=== PATIENT | male | born 1975 | race Caucasian/White ===

== ENCOUNTER 2024-10-12 11:58 | Emergency (ER) | payer OTHER, SELFPAY ==
--- OUTSIDE RECORDS SUMMARY | 2024-10-12 11:59 | XMS_ITS | Clinical Summary ---
Author Organization [facility] Address [address] [place] [address] Care Team Providers Care Vessel Captain Name Role Phone Todd Brock M.D. Primary Care Mikki gabriel Source Comments Patient records contain information from all sites at [facility]. For routine questions regarding patient records, call [phone] during business hours, M-F 8:00 AM - 5:00 PM Central Time. Record requests for emergency care only can be directed to [phone] at any time.[facility] Allergies Active Allergy Reactions Criticality Noted Date Comments Hydrocodone-Acetaminophen Nausea And Vomiting 0 08/11/2018 Trazodone GI intolerance 10/02/2019 Medications * This document contains information received from the source organization and may not represent a complete record from that organization. sildenafiL (VIAGRA) 100 mg tablet Take 1 tablet (100 mg total) by mouth as needed for erectile dysfunction. 18 tablet 3 3 Active Additional Information Patient not taking.Reported on 10/06/2023 QUEtiapine 150 mg tabletIndication s:Anxiety Generalized Disorder,Cycloth ymic Disorder Take 150 mg by mouth at bedtime. 90 tablet 3 4 11/21/19 25 Active escitalopram (Lexapro) 10 mg tabletIndication s:Anxiety Generalized Disorder,Depress ion Major Recurrent Severe Without Psychotic Features (HCC) Take 1 tablet (10 mg total) by mouth daily. 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 Aftercare Musculoskeletal Surgery 12/13/2021 Overview (12/13/2021): Added automatically from request for surgery [id number] Pain Hand Right 12/13/2021 Overview (12/13/2021): Added automatically from request for surgery [id number] Arthritis Finger 12/13/2021 Mallet Finger Acquired Right 08/23/2021 Overview (08/23/2021): Added automatically from request for surgery [id number] Major Depressive Disorder, Recurrent, Unspecifie d 03/13/2019 Overview (03/13/2019): Follows with Psychiatry Nicotine Dependence Cigarettes 03/13/2019 Hyperlipidemia Mixed 03/13/2019 Moderate Or Severe Use Disor camron (Dependence) Drug Cannabis Remission 03/13/2019 Moderate Or Severe Use Disor camron (Dependence) Alcohol Remission 03/13/2019 Smoking Tobacco Use Personal History 03/13/2019 Depression Major Recurrent S evere Without Psychotic Features 10/02/2018 Attention Deficit Hyperactive Disorder 4 Anxiety Generalized Disorder 04/14/2014 Persistent Depressive Disorder 04/14/2014 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 05/05/2009 Other Symptoms And Signs Inv olving Cognitive Functions And Awareness 02/05/2009 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 Med Refill 08/19/2024 Clinical Communication Department of Family Medicine, [facility], in [place], [place] [address] [phone] Todd Brock M.B.B.S., M.D. New Med Request 08/13/2024 Orders Only [facility] Todd Brock M.B.B.S., M.D. Screening Examination Diabetes Mellitus; Hyperlipidemia Mixed from Last 3 Months Immunizations Immunization Administration Dates Next Due HZV (ZOSTAVAX) 03/14/2023(Deferred: Patient dec ision) HepA Adult 03/14/2023(Deferred: Patient dec ision) HepB Adult 09/08/2011,08/09/2011 HepB Adult (HEPLISAV-B) 03/14/2023(Deferred: Pat ient decision) Influenza, Unspecified 06/07/2018 Pneumococcal Conjugate(PCV), Unspecified 03/14/2023(Deferred: Patient decision) SARS-COV-2 (COVID-19) - PFIZ ER (Discontinued)(12 years or older) 03/14/2023(Deferred: Patient decision) Td (Adult), adsorbed 01/27/2009 Td Preservative Free (TENIVA C, DECAVAC) 01/27/2009 Tdap 04/27/2015,01/27/2009 influenza vaccine quad (FLUZONE/FLUARIX) (6 months and older)(PF) 06/01/2020,05/29/2019 Family History Medical History Relation Name Comments No Known Problems Father Arthritis Maternal Grandmother mike christianomarge Pancreatic cancer Maternal Grandmother mike christianomarge Hyperlipidemia Mother jodi ruvalcaba Hypertension Mother jodi randa Lung cancer Mother jodi randa etiology wo rk related Diabetes Sister 1 mat Diabetes Sister 3 bahman dowd Anger Son 1 Relation Name Status Comments Brother mat Alive Daughter Alive Father Maternal Grandmother mike alvaradokamilahve Mother jodi randa Alive Sister 1 mat Alive Sister 2 mat Alive Sister 3 bahman dowd Son 1 Alive Son 2 Alive Son 3 Alive Social History Tobacco Use Types Packs/Day Years Used Date Smoking Tobacco: Former Cigarettes 0 1 09/21/2010 - 07/21/2011 Smokeless Tobacco: Former Tobacco Cessation:Counseling Given: Not Answered Alcohol Use Standard Drinks/Week Comments Not Currently 0 (1 standard drink = 0.6 oz pur e alcohol) [facility] Utilities Answer Date Recorded In the past 12 months has e [place], gas, oil, or water company threatened to shut off services in your home? No 10/25/2023 Humiliation, Afraid, Rape, and Kick questionnair e Answer Date Recorded Within the last year, have y ou been afraid of your partner or ex-partner? No 10/18/2022 Within the last year, have y ou been humiliated or emotionally abused in other ways by your partner or ex-partner? No Within the last year, have y ou been kicked, hit, slapped, or otherwise physically hurt by your partner or ex-partner? No 10/18/2022 Within the last year, have y ou been raped or forced to have any kind of sexual activity by your partner or ex-partner? No 10/18/2022 Social Connection and Isolation Panel [NHANES] A nswer Date Recorded In a typical week, how many times do you talk on the phone with family, friends, or neighbors? Three times a week 10/19/19 23 How often do you get togethe r with friends or relatives? Once a week 10/18/2022 How often do you attend [facility] or lutheran services? 1 to 4 times per year 10/18/2022 Do you belong to any clubs o r organizations such as adventist groups, unions, fraternal or athletic groups, or school groups? No 10/18/2022 How often do you attend meet ings of the clubs or organizations you belong to? Never 10/18/2022 Are you , , di vorced, , never , or living with a partner? Never 10/18/2022 AUDIT-C Answer Date Recorded Q1: How often do you have a drink containing alc ohol? Never 10/18/2022 Average Number of Drinks Not on file 023 Frequency of Binge Drinking Not on file 10/05 Overall Financial Resource Strain (CARDIA) Answe r Date Recorded How hard is it for you to pa y for the very basics like food, housing, medical care, and heating? Hard 10/18/2022 PHQ-2 Answer Date Recorded PHQ-2 Score 4 11/21/2023 [facility] - Occupational Stress Questionnaire Answer Date Recorded Do you feel stress - tense, restless, nervous, or anxious, or unable to sleep at night because your mind is troubled all the time - these days? Very much 10/18/2022 Exercise Vital Sign Answer Date Recorde d On average, how many days pe r week do you engage in moderate to strenuous exercise (like a brisk walk)? 0 days 10/25/2023 On average, how many minutes do you engage in exercise at this level? 0 min 10/25/2023 Hunger Vital Sign Answer Date Recorded Within the past 12 months, y ou worried that your food would run out before you got the money to buy more. Sometimes true Within the past 12 months, t he food you bought just didn't last and you didn't have money to get more. Sometimes true PRAPARE - Transportation Answer Date Re corded In the past 12 months, has l ack of transportation kept you from medical appointments or from getting medications? Yes 10/06 In the past 12 months, has l ack of transportation kept you from meetings, work, or from getting things needed for daily living? Yes 10/25/2023 Depression Answer Date Recor ded PHQ-9 Total Score (max 27) 15 11/20 Nutrition Answer Date Recorded On average, how many serving s of fruits and vegetables do you eat per day (serving size is equal to 1 cup or approximately the size of a tennis ball)? 0-2 10/25/2023 Dental Answer Date Recorded Dental: Regular Dentist No 10/19/19 Employment Answer Date Recorded Employment status Employed and actively working without restrictions 10/25/2023 Housing Stability Answer Date Recorded What is your living situation today? I h ave a place to live today, but I am worried about losing it in the future 10/25/2023 Education Answer Date Recorded What is the highest level of school you have completed or the highest degree you have received? GED or equivalent Sex and Gender Information Value Date Recorded Sex Assigned at Male 10/01/2021 12:10 PM SMALL ANIMAL CARETAKER Legal Sex Male 8:53 PM SMALL ANIMAL CARETAKER Gender Identity Male 10/01/2021 12:10 PM SMALL ANIMAL CARETAKER Sexual Orientation Straight 10/01/2021 12 :10 PM SMALL ANIMAL CARETAKER Last Filed Vital Signs Vital Sign Reading Time Taken Comments Blood Pressure 113/64 11/21/2023 1:50 PM CDT Pulse 64 11/21/2023 1:50 PM CDT Temperature 36.4 C (97.5 F) 11/21/2023 1:50 PM CDT Respiratory Rate 16 11/01/2023 3:58 PM CDT Oxygen Saturation 97% 01/07/2022 10:28 AM CDT Inhaled Oxygen Concentration - - Weight 60 kg (132 lb 4.4 oz) 11/21/2023 1:50 PM CDT Height 174 cm (5' 8.5) 11/21/2023 1:50 PM CDT Body Mass Index 19.82 11/21/2023 1:50 PM CDT Plan of Treatment Health Maintenance Due Date Last Done Comments CT Colonography 1973 Cologuard 1973 Colonoscopy 1973 Colorectal Cancer Screening 1973 FIT 1973 Hepatitis B Screening 1973 Pneumococcal vaccine (50+ years) (1 of 2 - PCV) 01/05/1992 Hepatitis B Vaccines (3 of 3 - 19+ 3-dose series) 02/07/2012 09/08/2011, 08/09/2011 Lipid (Cholesterol) Screening 08/18/2022 08/18/2021, 09/08/2020, 05/16/2020, Additional history exists Zoster Vaccines (1 of 2) 2023 COVID-19 Vaccine (1 - season) 2024 Influenza Vaccine (#1) 2024 , 05/29/2019, 06/07/2018 Depression Screening (Annual PHQ-2) 08/07/2024 Fasting Glucose for Diabetes Screening 08/18/2024 08/18/2021, 08/18/2021, 05/16/2020, Additional history exists DTaP,Tdap,and Td Vaccines (4 - Td or Tdap) 04/27/2025 04/27/2015, 01/27/2009, 01/27/2009, Additional history exists Hepatitis C Screening Completed 12/19/2022 IPV Vaccines Aged Out No longer eligi ble based on patient's age to complete this topic Medical Devices Implanted Type Area Apartment Community Manager Device Identifier Shelf Expiration Date Model / Serial / Lot Kwire Fix Stn Ss Bth 0.045x6 - [id number] Implanted:Qty: 3 on 08/31/2021 by Dai Springer M.D. at [facility] Hardware e.g. pins/screws /rods Right: Ring Finger Gary [id number] / / Compression Ft Screws, Cannulated, Titanium Implanted:Qty: 1 on 01/07/2022 by Dai Springer M.D. at [facility] Hardware e.g. pins/screws /rods Right: Hand Arthrex [id number] / / Explanted Type Area Apartment Community Manager Device Identifier Shelf Expiration Date Model / Serial / Lot Kwire Fix Stn Ss Bth 0.045x6 - [id number] Explanted:Qty : 1 on 08/31/2021 by Dai Springer M.D. at [facility] Hardware e.g. pins/screws /rods Right: Ring Finger [place] [id number] / / Procedures Procedure Name Priority Date/Time Associated Diagnosis Comments HCV AB SCRN W/REFLEX TO HCV PCR, S Routine 12/19/2022 8:05 AM CDT Screening For Venereal Disease GLUCOSE, FASTING, S/P Routine 08/18/2021 11:54 AM SMALL ANIMAL CARETAKER Moderate Or Severe Use Disorder (Dependence) Alcohol Remission (HCC) Depression Major Recurrent (HCC) General Medical Examination Adult LIPID PANEL, S Routine 08/18/2021 11:54 AM SMALL ANIMAL CARETAKER Moderate Or Severe Use Disorder (Dependence) Alcohol Remission (HCC) Depression Major Recurrent (HCC) General Medical Examination Adult from Last 3 Months or Most Recently Relevant to Health Maintenance Results * HCV Ab Scrn w/Reflex to HCV PCR, Serum (12/19/2022 8:05 AM CDT) HCV Ab Screen, S Negative Negative 12/20/19 3:32 PM CDT [facility] Comment: Biotin has been identified by the clay miner as a potential interfering substance. Higher concentrations of biotin may be found in multivitamins, hair/nail supplements, and workout supplements. If the result does not match clinical observations, repeat testing after patient refrains from the use of supplements for at least 12 hours. Blood (Blood, Venous) 12/19/2022 8:05 AM CDT 12/19/2022 2:14 PM CDT Narrative [facility] - 12/19/2022 3:32 PM CDT Specimen Information: Specimen ID: [id number] Specimen Type: Blood Specimen Collection Start Date: 12/19/2022 8:05 AM Specimen Received Date: 12/19/2022 2:14 PM Specimen ID: [id number] Specimen Type: Blood Specimen Collection Start Date: 12/19/2022 8:05 AM Todd Reyes M.D. LAB MICROBIOLOG Y - BLOOD ORDERABLES Final Result [facility] [address] [place] [address], [place] [address] * (ABNORMAL) Lipid Panel (08/18/2021 11:54 AM SMALL ANIMAL CARETAKER) Cholesterol, Total 301(H) mg/dL 2021 4:04 PM SMALL ANIMAL CARETAKER OWAT Comment: ----REFERENCE VALUE---- Desirable: < 200 Borderline high: 200 - 239 High: > or = 240 Triglycerides 177(H) mg/dL 08/18/2021 4:04 PM SMALL ANIMAL CARETAKER OWAT Comment: ----REFERENCE VALUE---- Normal: <150 Borderline high: 150-199 High: 200-499 Very high: > or =500 Cholesterol, HDL 55 >=40 mg/dL 08/18/2021 4:04 PM SMALL ANIMAL CARETAKER OWAT Calculated LDL 211(H) mg/dL 08/18/2021 4:04 PM SMALL ANIMAL CARETAKER OWAT Comment: The markedly elevated LDL level is suggestive of a genetic condition such as familial hypercholesterolemia (FH) or familial defective apolipoprotein B-100 (FDB). Molecular genetic testing for FH and FDB is available through [facility] Laboratories: Hypercholesterolemia Gene Panel (test FHRGP). Acquired (non-genetic) causes of markedly increased LDL cholesterol include cholestatic liver disease due to the presence of LpX. If a genetic form of hypercholesterolemia is suspected, family studies including biochemical testing for lipids (total cholesterol, triglycerides, LDL cholesterol and HDL cholesterol) are recommended. Please contact the laboratory at or the on-line test catalog at [employer] for information about how to order these tests or to speak with a genetic counselor. Further interpretation would require clinical information. ----REFERENCE VALUE---- Desirable: <100 mg/dL Above Desirable: 100-129 mg/dL Borderline High: 130-159 mg/dL High: 160-189 mg/dL Very High: >=190 mg/dL Cholesterol, Non-HDL, Calculated 246(H) mg/dL 08/18/2021 4:04 PM SMALL ANIMAL CARETAKER OWAT Comment: ----REFERENCE VALUE---- Desirable: <130 Above Desirable: 130-159 Borderline high: 160-189 High: 190-219 Very high: > or =220 Blood (Blood, Venous) 08/18/2021 11:54 AM SMALL ANIMAL CARETAKER 08/18/2021 3:46 PM SMALL ANIMAL CARETAKER us Mercy Sauceda M.D. LAB BLOOD ADD-ON Final Re sult [facility] [address] [place] [address], [place] OWAT [facility] [place] [address] [place] [address] * Glucose, Fasting (08/18/2021 11:54 AM SMALL ANIMAL CARETAKER) Glucose, P 96 70 - 100 mg/dL 08/18/2021 1:46 PM SMALL ANIMAL CARETAKER OWAT Last Intake 18 hr 08/18/2021 1:07 PM SMALL ANIMAL CARETAKER OWAT Blood (Blood, Venous) 08/18/2021 11:54 AM SMALL ANIMAL CARETAKER 08/18/2021 1:07 PM SMALL ANIMAL CARETAKER Mercy Sauceda M.D. LAB BLOOD NON ADD-ON Ema l Result [facility] [address] [place] [address], [place] OW[place] [facility] [place] [address] [place] [address] from Last 3 Months or Most Recently Relevant to [place] [phone] [facility] Care Teams Vessel Captain Relationship Specialty Start Date End Date Todd Brock M.B.B.SHemant, MJak. [address] [place] [address] [place] [phone] PCP - General Family Medicine 10/18/22
--- OUTSIDE RECORDS SUMMARY | 2024-10-12 11:59 | XMS_ITS | Encounter Summary ---
Author Organization [facility] Address [address] [place] [address] Care Team Providers Care Seconds Handler Name Role Phone Todd Brcok M.D. Primary Care Mikki gabriel Reason for Visit * Reason Onset Date Comments New Med Request 08/19/2024 Encounter Details Date Type Department Care Team (Latest Contact Info) Description 08/19/2024 Clinical Communication Department of Family Medicine, [facility], in [place], [place] [address] [place] [address] Todd Brock M.B.B.S., M.D. [address] [place] [address] New Med Request Social History Tobacco Use Types Packs/Day Years Used Date Smoking Tobacco: Former Cigarettes 0 1 09/21/2010 - 07/21/2011 Smokeless Tobacco: Former Alcohol Use Standard Drinks/Week Comments Not Currently 0 (1 standard drink = 0.6 oz pur e alcohol) [facility] Utilities Answer Date Recorded In the past 12 months has e electric, gas, oil, or water [employer] threatened to shut off services in your [...] or neighbors? Three times a week 10/19/19 How often do you get togethe r with friends or relatives? Once a week 10/18/2022 How often do you attend chur or episcopal services? 1 to 4 times per year 10/18/2022 Do you belong to any clubs o r organizations such as orthodoxy groups, unions, fraternal or athletic groups, or [...] Answer Date Recorded PHQ-2 Score 4 11/21/2023 [facility] - Occupational Stress Questionnaire Answer Date Recorded [...] Sex Assigned at Male 10/01/2021 12:10 PM ELECTRONICS WARFARE TECHNICIAN Legal Sex Male 8:53 PM ELECTRONICS WARFARE TECHNICIAN Gender Identity Male 10/01/2021 12:10 PM ELECTRONICS WARFARE TECHNICIAN Sexual Orientation Straight 10/01/2021 12 :10 PM ELECTRONICS WARFARE TECHNICIAN documented as of this encounter Miscellaneous Notes * Telephone Encounter - Oly Arriaga R.N. - 08/19/2024 1:28 PM CST Inverform Machine Operator clarified with patient that when [facility] closed his prescriptions were sent to -[facility] pharmacy and they have refills available for the Quetiapine prescription. Patient asked that hispharmacy be switched to [facility] in [place] and that provider send in new RX for Lexapro. Orders pended & sent to provider in another message. TRONICS WARFARE TECHNICIAN documented in this encounter Plan of Treatment Not on file documented as of this encounter Visit Diagnoses Not on filedocumented in this encounter Additional Health Concerns Assessment Noted Time PHQ-9 Depression Total Score: 15 024 2:09 PM CDT documented as of this encounter Care Teams Seconds Handler Relationship Specialty Start Date End Date Todd Brock M.B.B.S., MJak. [address] [place] [phone] PCP - General Family Medicine 10/18/22 documented as of this encounter
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
[2024-10-12 12:08] VITALS: BP 152/84; PULSE 60; RESP 18; TEMP 36.9; O2SAT 97; BMI 21.0
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
--- OUTSIDE RECORDS SUMMARY | 2024-10-12 14:13 | XMS_ITS | Clinical Summary ---
Author Organization [facility] Address [address] [place] [id number] Care Team Providers Care Manager Front Name Role Phone Todd Brock M.D. Primary Care Mikki gabriel Source Comments Patient records contain information from all sites at [facility]. For routine questions regarding patient records, call [phone] during business hours, M-F 8:00 AM - 5:00 PM Central Time. Record requests for emergency care only can be directed to [phone] at any time.[facility] Allergies Active Allergy Reactions Criticality Noted Date [...] (12/13/2021): Added automatically from request for surgery [id number] Pain Hand Right 12/13/2021 Overview (12/13/2021): Added automatically from request for surgery [id number] Arthritis Finger 12/13/2021 Mallet Finger Acquired Right 08/23/2021 Overview (08/23/2021): Added automatically from request for surgery [id number] Major Depressive Disorder, Recurrent, Unspecifie d 03/13/2019 [...] Description 08/19/2024 Refill Department of Family Medicine, [facility], in [place], [place] [address] [place] [address] Todd Brock M.B.B.S., M.D. Med Refill 08/19/2024 Clinical Communication Department of Family Medicine, [facility], in [place], [place] [address] [phone] Todd Brock M.B.B.S., M.D. New Med Request [...] drink = 0.6 oz pur e alcohol) [facility] Utilities Answer Date Recorded In the past 12 months has e [employer], gas, oil, or water company threatened to [...] week 10/18/2022 How often do you attend [facility] or zoroastrianism services? 1 to 4 times per year 10/18/2022 Do you belong to any clubs o r organizations such as pentecostalism groups, unions, fraternal or athletic groups, or [...] Answer Date Recorded PHQ-2 Score 4 11/21/2023 [facility] - Occupational Stress Questionnaire Answer Date [...] Sex Assigned at Male 10/01/2021 12:10 PM [employer]ISH [employer] A [employer] LANG[employer]AGE IN[employer] Legal Sex Male 8:53 PM [employer] LANG[employer]AGE IN[employer] Gender Identity Male 10/01/2021 12:10 PM [employer] IN[employer] Sexual Orientation Straight 10/01/2021 12 :10 PM ENGL[employer] A [employer] LANGUAGE IN[employer] Last Filed Vital Signs Vital Sign Reading [...] this topic Medical Devices Implanted Type Area Automotive Service Management Teacher Device Identifier Shelf Expiration Date Model / Serial / Lot Kwire Fix Stn Ss Bth 0.045x6 - [id number] Implanted:Qty: 3 on 08/31/2021 by Dai Springer M.D. at [facility] Hardware e.g. pins/screws /rods Right: Ring Finger Gary [id number] / / Compression Ft Screws, Cannulated, Titanium Implanted:Qty: 1 on 01/07/2022 by Dai Springer M.D. at [facility] Hardware e.g. pins/screws /rods Right: Hand Arthrex [id number] / / Explanted Type Area Automotive Service Management Teacher Device Identifier Shelf Expiration Date Model / Serial / Lot Kwire Fix Stn Ss Bth 0.045x6 - [id number] Explanted:Qty : 1 on 08/31/2021 by Dai Springer M.D. at [facility] Hardware e.g. pins/screws /rods Right: Ring Finger Bosler [id number] / / Procedures Procedure Name Priority Date/Time Associated Diagnosis Comments HCV AB SCRN W/REFLEX TO HCV PCR, S Routine 12/19/2022 8:05 AM CDT Screening For Venereal Disease GLUCOSE, FASTING, S/P Routine 08/18/2021 11:54 AM ENGLISH [employer] A SECOND LANGUAGE INSTRUCTOR Moderate Or Severe Use Disorder (Dependence) Alcohol Remission (HCC) Depression Major Recurrent (HCC) General Medical Examination Adult LIPID PANEL, S Routine 08/18/2021 11:54 AM ENGLISH [employer] A [employer] LANGUAGE INSTRUCTOR Moderate Or Severe Use Disorder (Dependence) Alcohol Remission (HCC) Depression Major Recurrent (HCC) General Medical Examination Adult from Last 3 Months or Most Recently Relevant to Health Maintenance Results * HCV Ab Scrn w/Reflex to HCV PCR, Serum (12/19/2022 8:05 AM CDT) HCV Ab Screen, S Negative Negative 12/20/19 3:32 PM CDT [facility] Comment: Biotin has been identified by the frame repairer as a potential interfering substance. Higher concentrations of biotin may be found in multivitamins, hair/nail supplements, and workout supplements. If the result does not match clinical observations, repeat testing after patient refrains from the use of supplements for at least 12 hours. Blood (Blood, Venous) 12/19/2022 8:05 AM CDT 12/19/2022 2:14 PM CDT Narrative [facility] - 12/19/2022 3:32 PM CDT Specimen Information: Specimen ID: [id number] Specimen Type: Blood Specimen Collection Start Date: 12/19/2022 8:05 AM Specimen Received Date: 12/19/2022 2:14 PM Specimen ID: [id number] Specimen Type: Blood Specimen Collection Start Date: 12/19/2022 8:05 AM Todd Reyes M.D. LAB MICROBIOLOG Y - BLOOD ORDERABLES Final Result [facility] [address] [place] [address], [facility] [place] [address] * (ABNORMAL) Lipid Panel (08/18/2021 11:54 AM ENGLISH AS A SECOND LANGUAGE INSTRUCTOR) Cholesterol, Total 301(H) mg/dL 2021 4:04 PM ENGLISH [employer] A [employer]OND LANGUAGE INSTRUCTOR [facility] Comment: ----REFERENCE VALUE---- Desirable: < 200 Borderline high: 200 - 239 High: > or = 240 Triglycerides 177(H) mg/dL 08/18/2021 4:04 PM ENGLISH [employer] A [employer] LANGUAGE INSTRUCTOR [facility] Comment: ----REFERENCE VALUE---- Normal: <150 Borderline high: 150-199 High: 200-499 Very high: > or =500 Cholesterol, HDL 55 >=40 mg/dL 08/18/2021 4:04 PM ENGLISH AS A SECOND LANGUAGE INSTRUCTOR [employer] Calculated LDL 211(H) mg/dL 08/18/2021 4:04 PM ENGLISH [employer] A [employer]OND LANGUAGE IN[employer]CTOR [employer] Comment: The markedly elevated LDL level is suggestive of a genetic condition such as familial hypercholesterolemia (FH) or familial defective apolipoprotein B-100 (FDB). Molecular genetic testing for FH and FDB is available through [facility]: Hypercholesterolemia Gene Panel (test FHRGP). Acquired (non-genetic) causes of markedly increased LDL cholesterol include cholestatic liver disease due to the presence of LpX. If a genetic form of hypercholesterolemia is suspected, family studies including biochemical testing for lipids (total cholesterol, triglycerides, LDL cholesterol and HDL cholesterol) are recommended. Please contact the laboratory at or the on-line test catalog at [facility] for information about how to order these tests or to speak with a genetic counselor. Further interpretation would require clinical information. ----REFERENCE VALUE---- Desirable: <100 mg/dL Above Desirable: 100-129 mg/dL Borderline High: 130-159 mg/dL High: 160-189 mg/dL Very High: >=190 mg/dL Cholesterol, Non-HDL, Calculated 246(H) mg/dL 08/18/2021 4:04 PM ENGLISH [employer] A SEC[employer] LANGUAGE IN[employer] Comment: ----REFERENCE VALUE---- Desirable: <130 Above Desirable: 130-159 Borderline high: 160-189 High: 190-219 Very high: > or =220 Blood (Blood, Venous) 08/18/2021 11:54 AM ENGLISH AS A SECOND LANGUAGE INSTRUCTOR 08/18/2021 3:46 PM ENGLISH AS A SECOND LANGUAGE INSTRUCTOR us Mercy Sauceda M.D. LAB BLOOD ADD-ON Final Re sult [facility] [address] [place] [address], [place] [employer] [facility] [place] [address] [place] [address] * Glucose, Fasting (08/18/2021 11:54 AM ENGLISH AS A SECOND LANGUAGE INSTRUCTOR) Glucose, P 96 70 - 100 mg/dL 08/18/2021 1:46 PM ENGLISH [employer] A SECOND LANGUAGE IN[employer]CTOR [employer] Last Intake 18 hr 08/18/2021 1:07 PM ENGLISH [employer] A [employer] LANGUAGE IN[employer]CTOR [employer] Blood (Blood, Venous) 08/18/2021 11:54 AM ENGLISH AS A SECOND LANGUAGE INSTRUCTOR 08/18/2021 1:07 PM ENGLISH AS A SECOND LANGUAGE INSTRUCTOR Mercy Sauceda M.D. LAB BLOOD NON ADD-ON Ema l Result [facility] [address] [place] [address], [place] OW[employer] [facility] in [place] [address] [place] [address] from Last 3 Months or Most Recently Relevant to [place] [id number] [facility] Care Teams Manager Front Relationship Specialty Start Date End Date Todd Brock M.B.B.SHemant, MJak. [address] [place] [address] [place] [phone] PCP - General Family Medicine 10/18/22
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
--- OUTSIDE RECORDS SUMMARY | 2024-10-12 14:13 | XMS_ITS | Encounter Summary ---
Author Organization [facility] Address [address] [place] [address] Care Team Providers Care Wilderness Guide Name Role Phone Todd Brock M.D. Primary Care Mikki gabriel Reason for Visit * Reason Onset Date Comments New Med Request 08/19/2024 Encounter Details Date Type Department Care Team (Latest Contact Info) Description 08/19/2024 Clinical Communication Department of Family Medicine, [facility], in [place], [place] [address] [place] [address] Todd Brock M.B.B.S., M.D. [address] [place] [address] New Med Request Social History Tobacco Use Types Packs/Day Years Used Date Smoking Tobacco: Former Cigarettes 0 1 09/21/2010 - 07/21/2011 Smokeless Tobacco: Former Alcohol Use Standard Drinks/Week Comments Not Currently 0 (1 standard drink = 0.6 oz pur e alcohol) [facility] Utilities Answer Date Recorded In the past 12 months has e electric, gas, oil, or water [employer] threatened to shut off services in your [...] How often do you attend chur or scientologist services? 1 to 4 times per year [...] Answer Date Recorded PHQ-2 Score 4 11/21/2023 [facility] of Occupat ional Health - Occupational Stress [...] Sex Assigned at Male 10/01/2021 12:10 PM INTRANET SPECIALIST Legal Sex Male 8:53 PM INTRANET SPECIALIST Gender Identity Male 10/01/2021 12:10 PM INTRANET SPECIALIST Sexual Orientation Straight 10/01/2021 12 :10 PM INTRANET SPECIALIST documented as of this encounter Miscellaneous Notes * Telephone Encounter - Oly Arriaga R.N. - 08/19/2024 1:28 PM CST Lithographic Plate Maker Apprentice clarified with patient that when [facility] closed his prescriptions were sent to -[facility] pharmacy and they have refills available for the Quetiapine prescription. Patient asked that hispharmacy be switched to [facility] in [place] and that provider send in new RX for Lexapro. Orders pended & sent to provider in another message. ANET SPECIALIST documented in this encounter Plan of Treatment Not on file documented as of this encounter Visit Diagnoses Not on filedocumented in this encounter Additional Health Concerns Assessment Noted Time PHQ-9 Depression Total Score: 15 024 2:09 PM CDT documented as of this encounter Care Teams Wilderness Guide Relationship Specialty Start Date End Date Todd Brock M.B.B.S., MJak. [address] [place] [phone] PCP - General Family Medicine 10/18/22 documented as of this encounter
[2024-10-12] MEDS: 0.9 % SODIUM CHLORIDE 1000 ml 1,000 ML IV (14:21)
[2024-10-12 14:56] VITALS: BP 139/99; PULSE 62; RESP 16; O2SAT 98
[2024-10-12 15:37] LABS: Basophils Absolute Auto 0.02 K/uL (0.00-0.30); Basophils Percent Auto 0.3 % (0.0-3.0); Eosinophils Absolute Auto 0.04 K/uL (0.00-0.50); Eosinophils Percent Auto 0.6 % (0.0-7.0); Hematocrit 43.1 % (37.0-53.0); Hemoglobin* 14.6 gm/dL (13.5-17.5); Immature Granulocytes Abs Auto 0.01 K/uL (0.00-0.30); Immature Granulocytes Pct Auto 0.2 %; Lymphocytes Absolute Auto 2.13 K/uL (0.90-2.90); Lymphocytes Percent Auto 32.1 % (20-44); Mean Corpuscular HGB Conc 34 gm/dL (32-36); Mean Corpuscular Hemoglobin 30 pg (26-34); Mean Corpuscular Volume 88 fL (80-100); Monocytes Percent Auto 6.3 % (0.0-11.0); Neutrophils Absolute Auto 4.02 K/uL (1.7-7.0); Neutrophils Percent Auto 60.5 % (42.0-72.0); Platelet Count* 320 K/uL (140-440); RDW Coefficient of Variation % 12.7 % (11.5-15.5); Red Blood Count 4.92 m/uL (4.30-5.90); White Blood Count* 6.64 K/uL (4.50-11.00)
[2024-10-12 15:38] LABS: Slide Review Reflex No
[2024-10-12 15:50] LABS: Chloride* 99 mmol/L (96-114)
[2024-10-12 15:51] LABS: Potassium* 4.1 mmol/L (3.6-5.1); Sodium* 136 mmol/L (135-149)
[2024-10-12 15:54] LABS: Anion Gap 11 mEq/L (7-15); Blood Urea Nitrogen* 16 mg/dL (7-30); Carbon Dioxide* 26 mmol/L (20-32); Creatinine* 0.7 mg/dL (0.5-1.5); Est. Creatinine Clearance* 112.14; Estimated Glomerular Filt Rate 112 ml/min; Glucose* 93 mg/dL (60-115)
[2024-10-12] MEDS: KETOROLAC 30 MG/ML inj IVP (15:56)
[2024-10-12 16:22] VITALS: BP 142/82; PULSE 57; RESP 14; O2SAT 99
== END 2024-10-12 16:48 | disposition home or self-care (01) ==
PROVIDERS: Emergency Provider Family Medicine; PCP Family Medicine
DX: R53.81 Other malaise (principal); S21.132A Puncture wound without foreign body of left front wall of thorax without penetration into thoracic cavity, initial encounter; W45.8XXA Other foreign body or object entering through skin, initial encounter
CPT/HCPCS: 36415; 71046; 80048; 85025; 96361; 96374; 99284; J1885; J7030

== ENCOUNTER 2025-02-10 09:22 | Emergency (ER) | payer OTHER, SELFPAY ==
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
--- OUTSIDE RECORDS SUMMARY | 2025-02-10 09:24 | XMS_ITS | Clinical Summary ---
Author Organization [facility] Address [address] [place] [address] Care Team Providers Care Automobile Travel [employer] Counselor Name Role Phone Todd Brock M.D. Primary Care Mikki gabriel Source Comments Patient records contain information from all sites at [facility]. For routine questions regarding patient records, call [phone] during business hours, M-F 8:00 AM - 5:00 PM Central Time. Record requests for emergency care only can be directed to [phone] at any time.[facility] Allergies Active Allergy Reactions Criticality Noted [...] Active Additional Information Patient not taking.Reported on 01/06/2025 QUEtiapine 150 mg tabletIndication s:Anxiety Generalized Disorder,Cycloth ymic Disorder Take 150 mg by mouth at bedtime. 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 [...] tablet (10 mg total) by mouth daily. Aftercare Musculoskeletal Surgery 12/13/2021 Overview (12/13/2021): Added automatically from request for surgery [id number] Pain Hand Right 12/13/2021 Overview (12/13/2021): Added automatically from request for surgery [id number] Arthritis Finger 12/13/2021 Mallet Finger Acquired Right 08/23/2021 Overview (08/23/2021): Added automatically from request for surgery [id number] Major Depressive Disorder, Recurrent, Unspecifie d 03/13/2019 Overview (03/13/2019): Follows with Psychiatry Nicotine Dependence Cigarettes 03/13/2019 Hyperlipidemia Mixed 03/13/2019 Moderate Or Severe Use Disor camron (Dependence) Drug Cannabis Remission 03/13/2019 Assessment & Plan (01/06/2025 11:00 AM CDT): He continues to use marijuana in consistently. [...] tablet (10 mg total) by mouth daily. Moderate Or Severe Use Disor camron (Dependence) Alcohol Remission 03/13/2019 Smoking Tobacco Use Personal History 03/13/2019 Depression Major Recurrent S evere Without Psychotic Features 10/02/2018 Assessment & Plan (01/06/2025 11:00 AM CDT): He continues to use marijuana in consistently. [...] tablet (10 mg total) by mouth daily. Attention Deficit Hyperactive Disorder 4 Anxiety Generalized Disorder 04/14/2014 Assessment & Plan (01/06/2025 11:00 AM CDT): He continues to use marijuana in consistently. [...] tablet (10 mg total) by mouth daily. Persistent Depressive Disorder 04/14/2014 Injury Intracranial With [...] Encounters Date Type Department Care Team Description 01/06/2025 10:00 AM CDT Office Visit Department of Family Medicine, [facility], [place] [address] [place] [address] Todd Brock M.B.B.S., M.D. Personal History Of Other Healed Physical Injury And Trauma (Primary Dx); Moderate Or Severe Use Disorder (Dependence) Drug Cannabis Remission (HCC); Depression Major Recurrent Severe Without Psychotic Features (HCC); Anxiety Generalized Disorder; Cyclothymic Disorder 01/02/2025 Refill Department of Family Medicine, [facility], [place] [address] [place] [address] Todd Brock M.B.B.S., M.D. Med Refill from Last 3 Months Immunizations Immunization Administration [...] Preservative Free (TENIVA C, DECAVAC) 01/27/2009 Tdap 10/06/2024,04/27/2015,01/27/2009 influenza vaccine quad (FLUZONE/FLUARIX) (6 months and older)(PF) 06/01/2020,05/29/2019 Family History Medical History Relation Name Comments No Known Problems Father Arthritis Maternal Grandmother mike alvaradomarge Pancreatic cancer Maternal Grandmother mike patton Hyperlipidemia Mother jodi ruvalcaba Hypertension Mother jodi ruvalcaba Lung cancer Mother jodi ruvalcaba etiology wo rk related Diabetes Sister 1 mat Diabetes Sister 4 bahman dowd Anger Son 1 Relation Name Status Comments Brother mat Alive Daughter Alive Father Maternal Grandmother mike patton Mother jodi ruvalcaba Alive Sister 1 mat Alive Sister 2 mat Alive Sister 3 Bahman Dowd Sister 4 bahmanalexia dowd Son 1 Alive Son 2 Alive Son 3 Alive Social History Tobacco Use Types Packs/Day Years Used Date Smoking Tobacco: Former Cigarettes 0 1 09/21/2010 - 07/21/2011 Smokeless Tobacco: Former Tobacco Cessation:Counseling Given: Not Answered Alcohol Use Standard Drinks/Week Comments Not Currently 0 (1 standard drink = 0.6 oz pur e alcohol) [facility] Utilities Answer Date Recorded In the past 12 months has th e [employer], gas, oil, or water [employer] threatened to shut off services in your [...] your living situation today? I have a [facility] place to live 11/12/2024 Education Answer Date Recorded What is the highest level of school you have completed or the highest degree you have received? GED or equivalent Sex and Gender Information Value Date Recorded Sex Assigned at Male 10/01/2021 12:10 PM SOLAR EN[employer]GY SYSTEMS DESIGNER Legal Sex Male 8:53 PM [employer] DESIGNER Gender Identity Male 10/01/2021 12:10 PM [employer] DESIGNER Sexual Orientation Straight 10/01/2021 12 :10 PM SOLAR ENERGY SYSTEMS DESIGNER Last Filed Vital Signs Vital Sign Reading Time Taken Comments Blood Pressure 120/78 01/06/2025 10:02 AM CDT average Pulse 61 01/06/2025 10:02 AM CDT Temperature 35.8 C (96.4 F) 01/06/2025 10:02 AM CDT Respiratory Rate 16 01/06/2025 10:0 2 AM CDT Oxygen Saturation 97% 01/07/2022 10: 28 AM CDT Inhaled Oxygen Concentration - - Weight 65 kg (143 lb 4.8 oz) 01/06/2025 10:02 AM CDT Height 174.4 cm (5' 8.66) 01/06/2025 1 0:02 AM CDT with shoes on Body Mass Index 21.37 01/06/2025 10:02 AM CDT Plan of Treatment Health Maintenance Due Date Last Done Comments CT Colonography 1973 Cologuard 1973 Colonoscopy 1973 Colorectal Cancer Screening 1973 FIT 1973 Pneumococcal vaccine (50+ years) (1 of 2 - PCV) 01/05/1992 Hepatitis B Vaccines (3 of 3 - 19+ 3-dose series) 02/07/2012 09/08/2011, 08/09/2011 Lipid (Cholesterol) Screening 08/18/2022 08/18/2021, 09/08/2020, 05/16/2020, Additional history exists Zoster Vaccines (1 of 2) 2023 COVID-19 Vaccine (1 - season) 2024 Influenza Vaccine (#1) 2025 , 05/29/2019, 06/07/2018 Fasting Glucose for Diabetes Screening 10/07/2027 10/06/2024, 08/18/2021, 08/18/2021, Additional history exists DTaP,Tdap,and Td Vaccines (5 - Td or Tdap) 10/06/2034 10/06/2024, 04/27/2015, 01/27/2009, Additional history exists Hepatitis C Screening Completed 12/19/2022 Depression Screening (Annual PHQ-2) Completed 01/06/2025, 12/31/2024 IPV Vaccines Aged Out No longer eligi ble based on patient's age to complete this topic Medical Devices Implanted Type Area Rafter Cutting Machine Operator Device Identifier Shelf Expiration Date Model / Serial / Lot Kwire Fix Stn Ss Bth 0.045x6 - [id number] Implanted:Qty: 3 on 08/31/2021 by Dai Springer M.D. at [facility] Hardware e.g. pins/screws /rods Right: Ring Finger [place] [id number] / / Compression Ft Screws, Cannulated, Titanium Implanted:Qty: 1 on 01/07/2022 by Dai Springer M.D. at [facility] Hardware e.g. pins/screws /rods Right: Hand Arthrex [id number] / / Explanted Type Area Rafter Cutting Machine Operator Device Identifier Shelf Expiration Date Model / Serial / Lot Kwire Fix Stn Ss Bth 0.045x6 - [id number] Explanted:Qty : 1 on 08/31/2021 by Dai Springer M.D. at [facility] Hardware e.g. pins/screws /rods Right: Ring Finger [place] [id number] / / Procedures Procedure Name Priority Date/Time Associated Diagnosis Comments HCV AB SCRN W/REFLEX TO HCV PCR, S Routine 12/19/2022 8:05 AM CDT Screening For Venereal Disease GLUCOSE, FASTING, S/P Routine 08/18/2021 11:54 AM SOL[employer]GY SYSTEMS DESIGNER Moderate Or Severe Use Disorder (Dependence) Alcohol Remission (HCC) Depression Major Recurrent (HCC) General Medical Examination Adult LIPID PANEL, S Routine 08/18/2021 11:54 AM SOLAR EN[employer]GY SYSTEMS DESIGNER Moderate Or Severe Use Disorder (Dependence) Alcohol Remission (HCC) Depression Major Recurrent (HCC) General Medical Examination Adult from Last 3 Months or Most Recently Relevant to Health Maintenance Results * HCV Ab Scrn w/Reflex to HCV PCR, Serum (12/19/2022 8:05 AM CDT) HCV Ab Screen, S Negative Negative 12/20/19 3:32 PM CDT MKTO Comment: Biotin has been identified by the teacher associate as a potential interfering substance. Higher concentrations of biotin may be found in multivitamins, hair/nail supplements, and workout supplements. If the result does not match clinical observations, repeat testing after patient refrains from the use of supplements for at least 12 hours. Blood (Blood, Venous) 12/19/2022 8:05 AM CDT 12/19/2022 2:14 PM CDT Narrative [facility] - 12/19/2022 3:32 PM CDT Specimen Information: Specimen ID: [id number] Specimen Type: Blood Specimen Collection Start Date: 12/19/2022 8:05 AM Specimen Received Date: 12/19/2022 2:14 PM Specimen ID: [id number] Specimen Type: Blood Specimen Collection Start Date: 12/19/2022 8:05 AM Todd Reyes M.D. LAB MICROBIOLOG Y - BLOOD ORDERABLES Final Result [facility] [address] [place] [address], [facility] in [place] [address] [place] [address] * (ABNORMAL) Lipid Panel (08/18/2021 11:54 AM SOLAR ENERGY SYSTEMS DESIGNER) Cholesterol, Total 301(H) mg/dL 2021 4:04 PM SOLAR ENERGY SYSTEMS DESIGNER OWAT Comment: ----REFERENCE VALUE---- Desirable: < 200 Borderline high: 200 - 239 High: > or = 240 Triglycerides 177(H) mg/dL 08/18/2021 4:04 PM SOLAR ENERGY SYSTEMS DESIGNER OWAT Comment: ----REFERENCE VALUE---- Normal: <150 Borderline high: 150-199 High: 200-499 Very high: > or =500 Cholesterol, HDL 55 >=40 mg/dL 08/18/2021 4:04 PM SOLAR ENERGY SYSTEMS DESIGNER OWAT Calculated LDL 211(H) mg/dL 08/18/2021 4:04 PM SOLAR ENERGY SYSTEMS DESIGNER OWAT Comment: The markedly elevated LDL level is suggestive of a genetic condition such as familial hypercholesterolemia (FH) or familial defective apolipoprotein B-100 (FDB). Molecular genetic testing for FH and FDB is available through [facility]: Hypercholesterolemia Gene Panel (test FHRGP). Acquired (non-genetic) causes of markedly increased LDL cholesterol include cholestatic liver disease due to the presence of LpX. If a genetic form of hypercholesterolemia is suspected, family studies including biochemical testing for lipids (total cholesterol, triglycerides, LDL cholesterol and HDL cholesterol) are recommended. Please contact the laboratory at or the on-line test catalog at [facility] for information about how to order these tests or to speak with a genetic counselor. Further interpretation would require clinical information. ----REFERENCE VALUE---- Desirable: <100 mg/dL Above Desirable: 100-129 mg/dL Borderline High: 130-159 mg/dL High: 160-189 mg/dL Very High: >=190 mg/dL Cholesterol, Non-HDL, Calculated 246(H) mg/dL 08/18/2021 4:04 PM SOLAR ENERGY SYSTEMS DESIGNER OWAT Comment: ----REFERENCE VALUE---- Desirable: <130 Above Desirable: 130-159 Borderline high: 160-189 High: 190-219 Very high: > or =220 Blood (Blood, Venous) 08/18/2021 11:54 AM SOLAR ENERGY SYSTEMS DESIGNER 08/18/2021 3:46 PM SOLAR ENERGY SYSTEMS DESIGNER us Mercy Sauceda M.D. LAB BLOOD ADD-ON Final Re sult [facility] [address] [place] [address], [facility] in [place] [address] [place] [address] * Glucose, Fasting (08/18/2021 11:54 AM SOLAR ENERGY SYSTEMS DESIGNER) Glucose, P 96 70 - 100 mg/dL 08/18/2021 1:46 PM SOLAR ENERGY SYSTEMS DESIGNER OWAT Last Intake 18 hr 08/18/2021 1:07 PM SOLAR ENERGY SYSTEMS DESIGNER OWAT Blood (Blood, Venous) 08/18/2021 11:54 AM SOLAR ENERGY SYSTEMS DESIGNER 08/18/2021 1:07 PM SOLAR ENERGY SYSTEMS DESIGNER Mercy Sauceda M.D. LAB BLOOD NON ADD-ON Ema l Result [facility] [address] [place] [address], [facility]AT [facility] in [place] [address] [place] [address] from Last 3 Months or Most Recently Relevant to Health Maintenance Care Teams Autom[employer] Travel Club Counselor Relationship Specialty Start Date End Date Todd Brock M.B.BHemantSHemant, MJak. [address] [place] [phone] PCP - General Family Medicine 10/18/22
--- OUTSIDE RECORDS SUMMARY | 2025-02-10 09:24 | XMS_ITS | Encounter Summary ---
Author Organization [facility] Address [address] [place] [address] Care Team Providers Care Chief Engineering Division Name Role Phone Todd Brock M.D. Primary Care P nery Reason for Visit * Reason Onset Date Comments Med Refill 01/02/2025 Encounter Details Date Type Department Care Team (Late st Contact Info) Description 01/02/2025 Refill Department of Family Medicine, [facility], in [place], [place] [address] [place] [address] Todd Brock M.B.B.S., M.D. [address] [place] [address] Med Refill Social History Tobacco Use Types Packs/Day Years Used Date Smoking Tobacco: Former Cigarettes 0 1 09/21/2010 - 07/21/2011 Smokeless Tobacco: Former Alcohol Use Standard Drinks/Week Comments Not Currently 0 (1 standard drink = 0.6 oz pur e alcohol) [facility] Utilities Answer Date Recorded In the past 12 months has e [employer], gas, oil, or water [employer] threatened to shut off services in your [...] your living situation today? I have a [facility] place to live 11/12/2024 Education Answer Date Recorded What is the highest level of school you have completed or the highest degree you have received? GED or equivalent Sex and Gender Information Value Date Recorded Sex Assigned at Male 10/01/2021 12:10 PM INSIDE [employer] SALES Legal Sex Male 8:53 PM INSIDE [employer] SALES Gender Identity Male 10/01/2021 12:10 PM [employer] SALES Sexual Orientation Straight 10/01/2021 12 :10 PM INSIDE [employer] SALES documented as of this encounter Plan of Treatment Not on file documented as of this encounter Visit Diagnoses Diagnosis Anxiety Generalized Disorder Cyclothymic Disorder documented in this encounter Additional Health Concerns Assessment Noted Time PHQ-9 Depression Total Score: 22 025 10:17 AM CDT documented as of this encounter Care Teams Chief Engineering Division Relationship Specialty Start Date End Date Todd Brock M.B.B.S., M.D. [address] [place], [place] [address] [phone] PCP - General Family Medicine 10/18/22 documented as of this encounter
[2025-02-10 09:28] VITALS: BP 128/77; PULSE 60; RESP 18; TEMP 36.6; O2SAT 97; BMI 21.7
--- NOTE | 2025-02-10 10:01 | ED.GENADULT ---
HPI - General Adult General Chief complaint: Back Injury/Pain Stated complaint: heard a pop on lower back- pain Time Seen by Provider: 02/10/25 09:54 Source: patient Mode of arrival: ambulatory Limitations: no limitations History of Present Illness HPI narrative: 50-year-old male presenting today with back pain. He states that less than an hour ago he was bending over to pet a cat when he felt a pop in his lower back and felt excruciating pain that knocked him to his knees. He denies loss of bladder or bowel control. He denies saddle anesthesia. The pain is across the lower back, localized in the center. Does not radiate up the back. No electric like discomfort down the legs. No weakness of the lower extremities. This has never happened to him before. Related Data Home Medications ?Medication ?Instructions ?Recorded ?Confirmed escitalopram oxalate 10 mg tablet 10 mg PO DAILY 02/10/25 02/10/25 quetiapine 100 mg tablet mg PO 02/10/25 Allergies Allergy/AdvReac Type Severity Reaction Status Date / Time acetaminophen (From Vicodin) AdvReac Verified 02/10/25 09:32 hydrocodone (From Vicodin) AdvReac Verified 02/10/25 09:32 Review of Systems Status of ROS: Reports: 6 or more systems reviewed and unremarkable except as noted in History and below PFSH [facility] Social History Smoking Status: Former smoker How often do you have a drink containing alcohol: never AUDIT-C Alcohol total score: 0 Non-prescribed substance use: marijuana (any form) Exam Narrative: Exam Narrative: Well-nourished well-developed patient, clearly uncomfortable. Alert and oriented. Answers questions appropriately. Mood and affect are appropriate. Thoughts are goal oriented and rational. No tangential or magical thinking noted. Patient speaks in full sentences without needing to catch his breath. HEENT: Normocephalic atraumatic. Extraocular muscles are intact. Conjunctivae are moist without any icterus noted. Back: Normal appearance. Tenderness over the lumbar area and paraspinal musculature. No bony tenderness over the lumbar spine. Straight leg test is negative. Strength is 5/5 of the bilateral lower extremities, both distal and proximal muscle groups. No foot drop is present. There is no swelling or step-offs noted of the back. Const: Vital Signs, click to edit/add: Vital Signs - 24 hr 02/10/25 09:28 Temperature 97.8 F Pulse Rate [Right Pulse Oximeter] 60 Respiratory Rate 18 Blood Pressure [Ri ght Upper Arm] 128/77 Pulse Oximetry 97 Oxygen Delivery Me thod Room Air Course Course ED Course: Toradol IM given in the ED today. Vital Signs Vital signs: Initial Vital Signs Temperature 97.8 F 02/10/25 09:28 Temperature Source Temporal Artery Scan 02/10/25 09:28 Pulse Rate 60 02/10/25 09:28 Pulse Rhythm Regular 02/10/25 09:28 Pulse Strength 3+ Normal 02/10/25 09:28 Respiratory Rate 18 02/10/25 09:28 Blood Pressure 128/77 02/10/25 09:28 Blood Pressure Mean 94 02/10/25 09:28 Blood Pressure Position Sitting 02/10/25 09:28 Pulse Oximetry 97 02/10/25 09:28 Oxygen Delivery Method Room Air 02/10/25 09:28 Vital Signs Temperature 97.8 F 02/10/25 09:28 Pulse Rate 60 02/10/25 09:28 Respiratory Rate 18 02/10/25 09:28 Blood Pressure 128/77 02/10/25 09:28 Pulse Oximetry 97 02/10/25 09:28 Oxygen Delivery Method Room Air 02/10/25 09:28 Temperature 97.8 F 02/10/25 09:28 Pulse Rate 60 02/10/25 09:28 Respiratory Rate 18 02/10/25 09:28 Blood Pressure 128/77 02/10/25 09:28 Pulse Oximetry 97 02/10/25 09:28 Oxygen Delivery Method Room Air 02/10/25 09:28 Medical Decision Making MDM Narrative Medical decision making narrative: 50-year-old male with acute lumbar back pain, question herniated disc. Patient will be treated with Medrol Dosepak, tramadol as needed. Discussed follow-up with primary care this week. Discharge Plan Discharge Clinical Impression: Acute lumbar back pain Patient Disposition: Home, Self-Care Condition: Stable Instructions: Acute Low Back Pain (ED) Additional Instructions: Take pain medications as needed. Do not operate heavy machinery if you take these medications. Use a heating pad to the lower back when you are relaxing, to not apply heat directly to skin do not use for more than 20 minutes at a time. Recommend you follow-up with your primary care provider at the end of this week or early next week. Fifteen tablets of tramadol sent to [facility]. Prescriptions: No Action quetiapine 100 mg tablet PO escitalopram oxalate 10 mg tablet 10 mg PO DAILY Follow Up/Referrals: Todd Brock MD [Primary Care Provider, Family Practice] Stand Alone Forms: [facility] Info Instructions
== END 2025-02-10 10:27 | disposition home or self-care (01) ==
LOC: ED 10:21
PROVIDERS: Emergency Provider Family Medicine; PCP Family Medicine
DX: M54.50 Low back pain, unspecified (principal); X50.1XXA Overexertion from prolonged static or awkward postures, initial encounter
CPT/HCPCS: 99283; 99284

== ENCOUNTER 2025-04-13 21:03 | Emergency (ER) | payer OTHER, SELFPAY ==
--- OUTSIDE RECORDS SUMMARY | 2025-04-13 21:05 | XMS_ITS | Clinical Summary ---
Author Organization [facility] Address [address] [place] [address] Care Team Providers Care Industrial Cafeteria Manager Name Role Phone Pcp, No Primary Care Provider Unavailabl e Allergies Active Allergy Reactions Criticality Noted Date Comments Hydrocodone-Acetaminophen Nausea And Vomiting 0 08/11/2018 Medications escitalopram oxalate (LEXAPRO) 20 mg tabletIndicati ons:Posttrauma tic stress disorder Take 1 tablet by mouth every morning. 90 tablet 9 Active diphenhydramin e HCl (ZZZQUIL ORAL) Take 1 Tab by mouth at bedtime. Active ibuprofen (ADVIL; MOTRIN) 600 mg tabletIndicati ons:Superior glenoid labrum lesion of left shoulder, initial encounter Take 1 tablet by mouth every 6 hours if needed for Pain. Maximum of 3200 mg in 24 hours. 30 tablet 08/20/2019 11:21 AM PREPLEATER 0 Active QUEtiapine (SeroqueL XR) 150 mg Tb24 Extended-Relea se tablet Take 150 mg by mouth at bedtime. Active ibuprofen (ADVIL; MOTRIN) 600 mg tabletIndicati ons:Nephrolith iasis Take 1 Tablet (600 mg) by mouth every 6 hours if needed for Pain. Maximum of 3200 mg in 24 hours. 15 Tablet 5 Active tamsulosin 0.4 mg capsuleIndicat ions:Nephrolit hiasis,Hydrour eter, left Take 1 Capsule (0.4 mg) by mouth at bedtime for 10 days. 10 Capsule 5 04/23/20 25 Active buPROPion (WELLBUTRIN XL) 300 mg Extended-Relea se tablet Take 450 mg by mouth every morning. 04/13/20 25 Discontinu ed(*Patien t states no longer taking) OLANzapine (ZYPREXA) 5 mg tabletIndicati ons:Posttrauma tic stress disorder,Sever e recurrent major depression without psychotic features (HC) Take 1 tablet by mouth at bedtime. 30 tablet 0 04/13/20 25 Discontinu ed(*Patien t states no longer taking) hydrOXYzine pamoate (VISTARIL) 25 mg capsuleIndicat ions:Severe recurrent major depression without psychotic features (HC) Take 1 capsule by mouth 3 times daily if needed. 30 capsule 0 04/13/20 25 Discontinu ed(*Patien t states no longer taking) methylPREDNISo lone (Medrol, Luis,) 4 mg tabletIndicati ons:Other acute back pain,Acute midline low back pain with left-sided sciatica Take by mouth as instructed per packaging. 21 Tablet 3 04/13/20 25 Discontinu ed(*Patien t states no longer taking) cyclobenzaprin e (FLEXERIL) 10 mg tabletIndicati ons:Other acute back pain,Acute midline low back pain with left-sided sciatica Take 1 Tablet (10 mg) by mouth 3 times daily if needed for Muscle Spasm. 30 Tablet 3 04/13/20 25 Discontinu ed(*Patien t states no longer taking) Active Problems Problem Noted Date Diagnosed Date Dysthymic disorder 11/15/2021 Generalized anxiety disorder 11/15/2021 Dysthymic disorder 11/11/2021 Generalized anxiety disorder 11/11/2021 Superior glenoid labrum lesion of left shoulder 08/19/2019 Supraventricular tachycardia 03/19/2019 Overview (09/21/2019): esmeter Recurrent major depressive disorder 03/13/2019 Overview (09/21/2019): [...] Encounters Date Type Department Care Team Description 04/13/2025 9:12 AM CDT - 04/13/2025 11:49 AM CDT Emergency [facility] [address] [place] [address] Radu Vincent MD Nephrolithiasis (Primary Dx); Hydroureter, left Discharge Disposition: Home Self Care 04/13/2025 Travel from Last 3 Months Immunizations Immunization Administration [...] Date Recorded PHQ-2 TOTAL SCORE 4 02/23/2020 Interpersonal Safety Answer Date Record ed Are you being hit, kicked, p ushed or yelled at (see row info)? No 04/13/2025 Interpersonal Safety Abuse 12 - 18 Not on file 04/13/2025 Interpersonal Safety Ambulatory Vulnerability No t on file 04/13/2025 Sex and Gender Information Value Date Recorded Sex Assigned at Not on file Legal Sex Male 6:59 AM PREPLEATER Gender Identity Not on file Sexual Orientation Not on file Obstetrics History Last Filed Vital Signs Vital Sign Reading Time Taken Comments Blood Pressure 133/78 04/13/2025 11:49 AM CDT Pulse 65 04/13/2025 11:49 AM CDT Temperature 37 C (98.6 F) 04/13/2025 9:23 AM CDT Respiratory Rate 20 04/13/2025 9:23 AM CDT Oxygen Saturation 97% 04/13/2025 11:49 AM CDT Inhaled Oxygen Concentration - - Weight 61.7 kg (136 lb) 04/13/2025 9:21 AM CDT Height 174 cm (5' 8.5) 04/13/2025 9:21 AM CDT Body Mass Index 20.38 04/13/2025 9:21 AM CDT Plan of Treatment Health Maintenance [...] of 2) 2023 COVID-19 vaccine series ( - season) 2025 Influenza Vaccine (#1) 2025 06/07/2018 Tetanus booster 04/27/2025 04/27/2015, 03/2011 (Completed outside of [facility]), 01/27/2009, Additional history exists RSV vaccine for adults or (1 - 1-dose 75+ series) 01/05/2048 Medical Devices Implanted Type Area Dishcloth Folder Device Identifier Shelf Expiration Date Model / Serial / Lot Ancr Sut 2.9x12.5mm Pushlock Bio-Comp - [id number] Implanted:Qty: 2 on 08/20/2019 by Eliezer Seals MD at [facility] Left: Shoulder [employer] 05/06/2021 AR-2923BC# / / [id number] Ancr Sut 2.9x12.5mm Pushlock Bio-Comp - [id number] Implanted:Qty: 1 on 08/20/2019 by Eliezer Seals MD at [facility] Left: Shoulder [employer] 04/06/2021 AR-2923BC# / / [id number] Sut Arthrex Prox Tenodesis Implnt Kit Rev 0 - [id number] Implanted:Qty: 1 on 08/20/2019 by Eliezer Seals MD at [facility] Left: Shoulder [employer] 05/06/2024 AR-2290# / / [id number] Procedures Procedure Name Priority Date/Time Associated Diagnosis Comments CT ABDOMEN PELVIS STONE PROTOCOL WO STAT 04/13/2025 10:36 AM CDT URINALYSIS MICROSCOPIC STAT 04/13/2025 9:30 AM CDT UA W/ SEDIMENT EXAM REFLEXED PER CRITERIA STAT 04/13/2025 9:30 AM CDT BASIC METABOLIC PANEL STAT 04/13/2025 9:25 AM CDT CBC W PLT NO DIFF STAT 04/13/2025 9:2 5 AM CDT from Last 3 Months Results * CT ABDOMEN PELVIS STONE PROTOCOL WO (04/13/2025 10:36 AM CDT) Anatomical Region Laterality Modality Abdomen, Pelvis, AORTA, LIVER, SPLEEN Computed Tomography 04/13/2025 10:4 3 AM CDT Narrative 04/13/2025 10:43 AM CDT For Patients: As a result of the Cures Act, medical imaging exams and procedure reports are released immediately into your electronic medical record. You may view this report before your referring provider. If you have questions, please contact your health care provider. INDICATION: Abdominal and flank pain; kidney stones suspected. COMPARISON: None. TECHNIQUE: CT abdomen and pelvis without intravenous contrast; coronal and sagittal reformats. FINDINGS: A 6 mm calculus identified at the left ureterovesical junction slice 165 series 2 with minimal left-sided hydroureter. No evidence of hydronephrosis. A 9 mm nonobstructing calculus upper pole calyx left kidney. No renal or ureteral calculi on the right. A tiny calculus identified in the dependent portion of the urinary bladder. Enlarged prostate gland. No focal hepatic or splenic pathology. No pancreatic pathology. Gallbladder is unremarkable. No adrenal pathology. No retroperitoneal lymphadenopathy. No evidence of abdominal or pelvic ascites. Calcifications identified in the abdominal aorta and iliac arteries bilateral. Impression: 1. A 6 mm calculus identified at the left ureterovesical junction causing minimal left-sided hydroureter without any hydronephrosis. 2. A 9 mm nonobstructing calculus upper pole calyx left kidney. 3. A tiny 3 mm calcification identified in the dependent portion of the urinary bladder. Please note that all CT scans at this facility use dose modulation, iterative reconstruction, and/or weight-based dosing when appropriate to reduce radiation dose to as low as reasonably achievable. Dictated by Kezia Hodgson MD @ Apr 13 2025 10:43AM (Electronically Signed) [email or web address] Procedure Note Kezia Hodgson MBBS - 04/13/2025 For Patients: As a result of the Cures Act, medical imagingexams and procedure reports are released immediately into your electronicmedical record. You may view this report before your referring provider.If you have questions, please contact your health care provider. INDICATION: Abdominal and flank pain; kidney stones suspected. COMPARISON: None. TECHNIQUE: CT abdomen and pelvis without intravenous contrast; coronal and sagittalreformats. FINDINGS: A 6 mm calculus identified at the left ureterovesical junction slice 165series 2 with minimal left-sided hydroureter. No evidence ofhydronephrosis. A 9 mm nonobstructing calculus upper pole calyx leftkidney. No renal or ureteral calculi on the right. A tiny calculusidentified in the dependent portion of the urinary bladder. Enlargedprostate gland. No focal hepatic or splenic pathology. No pancreaticpathology. Gallbladder is unremarkable. No adrenal pathology. Noretroperitoneal lymphadenopathy. No evidence of abdominal or pelvicascites. Calcifications identified in the abdominal aorta and iliacarteries bilateral. Impression: 1. A 6 mm calculus identified at the left ureterovesical junction causingminimal left-sided hydroureter without any hydronephrosis. 2. A 9 mm nonobstructing calculus upper pole calyx left kidney. 3. A tiny 3 mm calcification identified in the dependent portion of theurinary bladder. Please note that all CT scans at this facility use dose modulation,iterative reconstruction, and/or weight-based dosing when appropriate toreduce radiation dose to as low as reasonably achievable. Dictated by Kezia Hodgson MD @ Apr 13 2025 10:43AM (Electronically Signed) [email or web address] Radu Vincent MD CT Final Result * (ABNORMAL) URINALYSIS MICROSCOPIC (04/13/2025 9:30 AM CDT) RBC >100(A) 0-2, None Seen /HPF 04/13/2025 9:52 AM CDT [facility] WBC 0-2 0-2, 3-5, None Seen /HPF 04/13/2025 9:52 AM CDT [facility] BACTERIA Rare None Seen, Rare, Few Bacteria/H PF 04/13/2025 9:52 AM CDT [facility] EPITHELIAL CELLS Few None Seen, Few Epi/HPF 04/13/2025 9:52 AM CDT [facility] Urine URINE SPECIMEN / Unknown Non-Blood / Unknown 04/13/2025 9:30 AM CDT 04/13/2025 9:36 AM CDT Radu Vincent MD URINE Final Result [facility] [address] [place] [address] * (ABNORMAL) UA W/ SEDIMENT EXAM REFLEXED PER CRITERIA (04/13/2025 9:30 AM CDT) COLOR Yellow Yellow Color 04/13/2025 9:42 AM CDT [facility] CLARITY Cloudy(A) Clear Clarity 04/13/2025 9:42 AM CDT [facility] SPECIFIC GRAVITY,URINE 1.015 1.010, 1.015, 1.020, 1.025 04/13/2025 9:42 AM CDT [facility] PH,URINE 7.0 6.0, 7.0, 8.0, 5.5, 6.5, 7.5, 8.5 04/13/2025 9:42 AM CDT [facility] UROBILINOGEN, QUALITATIVE Normal Normal EU/dl 04/13/2025 9:42 AM T [facility] PROTEIN, URINE Negative Negative mg/dL 04/13/2025 9:42 AM T [facility] GLUCOSE, URINE Negative Negative mg/dL 04/13/2025 9:42 AM T [facility] KETONES,URINE Negative Negative mg/dL 04/13/2025 9:42 AM T [facility] BILIRUBIN,URI NE Negative Negative 04/13/2025 9:42 AM T [facility] OCCULT BLOOD,URINE Large(A) Negative 04/13/2025 9:42 AM [facility] NITRITE Negative Negative 04/13/2025 9:42 AM [facility] LEUKOCYTE ESTERASE Trace(A) Negative 04/13/2025 9:42 AM [facility] Urine URINE SPECIMEN / Unknown Non-Blood / Unknown 04/13/2025 9:30 AM CDT 04/13/2025 9:36 AM CDT Radu Vincent MD URINE Final Result [facility] [address] [place] [address] * CBC W PLT NO DIFF (04/13/2025 9:25 AM CDT) WHITE BLOOD COUNT 6.3 4.5 - 11.0 thou/cu mm 04/13/2025 9:37 AM [facility] RED BLOOD COUNT 5.04 4.30 - 5.90 mil/cu mm 04/13/2025 9:37 AM [facility] HEMOGLOBIN 14.6 13.5 - 17.5 g/dL 04/13/2025 9:37 AM [facility] HEMATOCRIT 42.9 37.0 - 53.0 % 04/13/2025 9:37 AM [facility] MCV 85 80 - 100 fL 04/13/2025 9:37 AM [facility] MCH 29.0 26.0 - 34.0 pg 04/13/2025 9:37 AM [facility] MCHC 34.0 32.0 - 36.0 g/dL 04/13/2025 9:37 AM [facility] RDW 14.5 11.5 - 15.5 % 04/13/2025 9:37 AM [facility] PLATELET COUNT 235 140 - 440 thou/cu mm 04/13/2025 9:37 AM [facility] MPV 9.4 6.5 - 11.0 fL 04/13/2025 9:37 AM [facility] Blood BLOOD SPECIMEN / Unknown IV Start / Unknown 04/13/2025 9:25 AM T 04/13/2025 9:34 AM [facility] - 04/13/2025 9:37 AM CDT RN to order if patient presents with abdominal pain. Radu Vincent MD HEMATOLOGY Final Result [facility] [address] [place] [address] * (ABNORMAL) BASIC METABOLIC PANEL (04/13/2025 9:25 AM T) SODIUM 138 136 - 145 mmol/L 04/13/2025 9:55 AM [facility] POTASSIUM 4.2 3.5 - 5.1 mmol/L 04/13/2025 9:55 AM [facility] CHLORIDE 104 98 - 107 mmol/L 04/13/2025 9:55 AM [facility] CO2,TOTAL 23 22 - 29 mmol/L 04/13/2025 9:55 AM [facility] ANION GAP 11 5 - 18 04/13/2025 9:55 AM [facility] GLUCOSE 124(H) 70 - 99 mg/dL 04/13/2025 9:55 AM [facility] CALCIUM 9.0 8.8 - 10.4 mg/dL 04/13/2025 9:55 AM [facility] Comment: Reference ranges for this test were updated on 06/11/2024 to reflect our healthy population more accurately. Reference range changes are not retroactively applied to results, but previous results using the same methodology can be interpreted in the context of the new reference range. BUN 16 6 - 20 mg/dL 04/13/2025 9:55 AM T [facility] CREATININE 0.79 0.70 - 1.20 mg/dL 04/13/2025 9:55 AM [facility] BUN/CREAT RATIO 20 10 - 20 9:55 AM T [facility] eGFR >90 >90 mL/min/1. 73m2 04/13/2025 9:55 AM [facility] Comment:As of 2021, eG FR is calculated by the CKD-EPI creatinine equation without race adjustment. eGFR can be influenced by muscle mass, exercise, and diet. The reported eGFR is an estimation only and is only applicable if the renal function is stable. Blood BLOOD SPECIMEN / Unknown IV Start / Unknown 04/13/2025 9:25 AM CDT 04/13/2025 9:34 AM CDT Radu Vincent MD CHEMISTRY Final Result [facility] [address] [place] [id number] from Last 3 Months Insurance MEDICAID Advance Directives * Full Code (Latest Code Status on File) Date Activated Date Inactivated Comments 08/20/2019 7:16 AM 08/20/2019 1:52 PM Question Answer Comments Code Status Discussion: Not Discussed Care Teams Industrial Cafeteria Manager Relationship Specialty Start Date End Date Pcp, No . PCP - General 01/26/22
--- OUTSIDE RECORDS SUMMARY | 2025-04-13 21:05 | XMS_ITS | Clinical Summary ---
Author Organization [facility] Address [address] [place] [id number] Care Team Providers Care Waiter/Waitress Room Service Name Role Phone Todd Brock M.D. Primary Care Mikki gabriel Source Comments Patient records contain information from all sites at [facility]. For routine questions regarding patient records, call [phone] during business hours, M-F 8:00 AM - 5:00 PM Central Time. Record requests for emergency care only can be directed to [phone] at any time.[facility] Allergies Active Allergy Reactions Criticality Noted Date [...] (12/13/2021): Added automatically from request for surgery [id number] Pain Hand Right 12/13/2021 Overview (12/13/2021): Added automatically from request for surgery [id number] Arthritis Finger 12/13/2021 Mallet Finger Acquired Right 08/23/2021 Overview (08/23/2021): Added automatically from request for surgery [id number] Major Depressive Disorder, Recurrent, Unspecifie d 03/13/2019 [...] To Other Legal Circumstances 03/13/20 19 10/06/2023 Immunizations Immunization Administration Dates Next Due HZV [...] Known Problems Father Arthritis Maternal Grandmother mike patton Pancreatic cancer Maternal Grandmother mike patton Hyperlipidemia Mother jodi ruvalcaba Hypertension Mother jodi ruvalcaba Lung cancer Mother jodi ruvalcaba etiology wo rk related Diabetes Sister 1 mat Diabetes Sister 4 bahmanalexia dowd Anger Son 1 Relation Name Status Comments Brother mat Alive Daughter Alive Father Maternal Grandmother mike patton Mother jodi ruvalcaba Alive Sister 1 mat Alive Sister 2 mat Alive Sister 3 Bahman Dowd Sister 4 bahman dowd Son 1 Alive Son 2 Alive Son 3 Alive Social History Tobacco Use Types Packs/Day Years Used Date Smoking Tobacco: Former Cigarettes 0 1 09/21/2010 - 07/21/2011 Smokeless Tobacco: Former Tobacco Cessation:Counseling Given: Not Answered Alcohol Use Standard Drinks/Week Comments Not Currently 0 (1 standard drink = 0.6 oz pur e alcohol) [facility] Utilities Answer Date Recorded In the past [address] [employer], gas, oil, or water [employer] threatened to shut off services in your [...] your living situation today? I have a [facility] place to live 11/12/2024 Education Answer Date Recorded What is the highest level of school you have completed or the highest degree you have received? GED or equivalent Sex and Gender Information Value Date Recorded Sex Assigned at Male 10/01/2021 12:10 PM SINGLE CORNER CUTTER Legal Sex Male 8:53 PM SINGLE CORNER CUTTER Gender Identity Male 10/01/2021 12:10 PM SINGLE CORNER CUTTER Sexual Orientation Straight 10/01/2021 12 :10 PM SINGLE CORNER CUTTER Last Filed Vital Signs Vital Sign Reading [...] 2) 2023 COVID-19 Vaccine (1 - season) 2025 Influenza Vaccine (#1) 2025 , 05/29/2019, 06/07/2018 Depression Monitoring (PHQ-9) 05/03/2025 12/31/2024 Fasting Glucose for Diabetes Screening 10/07/2027 10/06/2024, 08/18/2021, 08/18/2021, Additional history exists DTaP,Tdap,and Td Vaccines (5 - Td or Tdap) 10/06/2034 10/06/2024, 04/27/2015, 01/27/2009, Additional history exists Hepatitis C Screening Completed 12/19/2022 Depression Monitoring (PHQ-9 for quality tracking) Completed 01/06/2025 IPV Vaccines Aged Out No longer eligi ble based on patient's age to complete this topic Medical Devices Implanted Type Area City Designer Device Identifier Shelf Expiration Date Model / Serial / Lot Kwire Fix Stn Ss Bth 0.045x6 - [id number] Implanted:Qty: 3 on 08/31/2021 by Dai Springer M.D. at [facility] Hardware e.g. pins/screws /rods Right: Ring Finger [place] [id number] / / Compression Ft Screws, Cannulated, Titanium Implanted:Qty: 1 on 01/07/2022 by Dai Springer M.D. at [facility] Hardware e.g. pins/screws /rods Right: Hand [employer] [id number] / / Explanted Type Area City Designer Device Identifier Shelf Expiration Date Model / Serial / Lot Kwire Fix Stn Ss Bt 0.045x6 - [id number] Explanted:Qty : 1 on 08/31/2021 by Dai Springer M.D. at [facility] Hardware e.g. pins/screws /rods Right: Ring Finger [place] [id number] / / Procedures Procedure Name Priority Date/Time Associated Diagnosis Comments HCV AB SCRN W/REFLEX TO HCV PCR, S Routine 12/19/2022 8:05 AM CDT Screening For Venereal Disease GLUCOSE, FASTING, S/P Routine 08/18/2021 11:54 AM SINGLE CORNER CUTTER Moderate Or Severe Use Disorder (Dependence) Alcohol Remission (HCC) Depression Major Recurrent (HCC) General Medical Examination Adult LIPID PANEL, S Routine 08/18/2021 11:54 AM SINGLE CORNER CUTTER Moderate Or Severe Use Disorder (Dependence) Alcohol Remission (HCC) Depression Major Recurrent (HCC) General Medical Examination Adult from Last 3 Months or Most Recently Relevant to Health Maintenance Results * HCV Ab Scrn w/Reflex to HCV PCR, Serum (12/19/2022 8:05 AM CDT) [facility] HCV Ab Screen, S Negative Negative 12/20/19 3:32 PM CDT [facility] Comment: Biotin has been identified by the dredge master as a potential interfering substance. Higher concentrations of biotin may be found in multivitamins, hair/nail supplements, and workout supplements. If the result does not match clinical observations, repeat testing after patient refrains from the use of supplements for at least 12 hours. Blood (Blood, Venous) 12/19/2022 8:05 AM CDT 12/19/2022 2:[address] [facility] - 12/19/2022 3:32 PM CDT Specimen Information: Specimen ID: [id number] Specimen Type: Blood Specimen Collection Start Date: 12/19/2022 8:05 AM Specimen Received Date: 12/19/2022 2:14 PM Specimen ID: [id number] Specimen Type: Blood Specimen Collection Start Date: 12/19/2022 8:05 AM Todd Reyes M.D. LAB MICROBIOLOG Y - BLOOD ORDERABLES Final Result [facility] [address] [place] [address], [facility] [place] [address] [place] [address] * (ABNORMAL) Lipid Panel (08/18/2021 11:54 AM SINGLE CORNER CUTTER) [facility] Cholesterol, Total 301(H) mg/dL 2021 4:04 PM SINGLE CORNER CUTTER OWAT Comment: ----REFERENCE VALUE---- Desirable: < 200 Borderline high: 200 - 239 High: > or = 240 Triglycerides 177(H) mg/dL 08/18/2021 4:04 PM SINGLE CORNER CUTTER OWAT Comment: ----REFERENCE VALUE---- Normal: <150 Borderline high: 150-199 High: 200-499 Very high: > or =500 Cholesterol, HDL 55 >=40 mg/dL 08/18/2021 4:04 PM SINGLE CORNER CUTTER OWAT Calculated LDL 211(H) mg/dL 08/18/2021 4:04 PM SINGLE CORNER CUTTER OWAT Comment: The markedly elevated LDL level is suggestive of a genetic condition such as familial hypercholesterolemia (FH) or familial defective apolipoprotein B-100 (FDB). Molecular genetic testing for FH and FDB is available through [facility]: Hypercholesterolemia Gene Panel (test FHRGP). Acquired (non-genetic) causes of markedly increased LDL cholesterol include cholestatic liver disease due to the presence of LpX. If a genetic form of hypercholesterolemia is suspected, family studies including biochemical testing for lipids (total cholesterol, triglycerides, LDL cholesterol and HDL cholesterol) are recommended. Please contact the laboratory at or the on-line test catalog at [employer] for information about how to order these tests or to speak with a genetic counselor. Further interpretation would require clinical information. ----REFERENCE VALUE---- Desirable: <100 mg/dL Above Desirable: 100-129 mg/dL Borderline High: 130-159 mg/dL High: 160-189 mg/dL Very High: >=190 mg/dL Cholesterol, Non-HDL, Calculated 246(H) mg/dL 08/18/2021 4:04 PM SINGLE CORNER CUTTER OWAT Comment: ----REFERENCE VALUE---- Desirable: <130 Above Desirable: 130-159 Borderline high: 160-189 High: 190-219 Very high: > or =220 Blood (Blood, Venous) 08/18/2021 11:54 AM SINGLE CORNER CUTTER 08/18/2021 3:46 PM SINGLE CORNER CUTTER Mercy Sauceda M.D. LAB BLOOD ADD-ON Final Re sult Performing Organization Address [facility] Co de Phone Number [facility] [address] [place] [address], [facility] OWAT [facility] [place] [address] [place] [id number] * Glucose, Fasting (08/18/2021 11:54 AM SINGLE CORNER CUTTER) Glucose, P 96 70 - 100 mg/dL 08/18/2021 1:46 PM SINGLE CORNER CUTTER OWAT Last Intake 18 hr 08/18/2021 1:07 PM SINGLE CORNER CUTTER OWAT Blood (Blood, Venous) 08/18/2021 11:54 AM SINGLE CORNER CUTTER 08/18/2021 1:07 PM SINGLE CORNER CUTTER Mercy Sauceda M.D. LAB BLOOD NON ADD-ON Ema l Result Performing Organization Address [facility]/ZIP Co de Phone Number [facility] [address] [place] [address], [facility] OWAT [facility] [place] [address] [address] from Last 3 Months or Most Recently Relevant to Health Maintenance Care Teams Waiter/Waitress Room Service Relationship Specialty Start Date End Date Todd Brock M.B.B.S., Ramez. [address] [place] [phone] PCP - General Family Medicine 10/18/22
[2025-04-13 21:41] VITALS: BP 161/67; PULSE 66; RESP 18; TEMP 37.1; O2SAT 96; BMI 21.1
--- NOTE | 2025-04-13 22:25 | ED_ITS ---
HPI - General Adult General Date Seen: 04/13/25 Chief complaint: Flank Pain Stated complaint: Worsened kidney stone pain Time Seen by Provider: 04/13/25 22:22 History of Present Illness HPI narrative: 50-year-old male with a past medical history of TBI, anxiety, PTSD, ADHD, alcohol dependence in remission, hyperlipidemia, supraventricular tachycardia, who presents to the ER today with flank pain and abdominal pain with vomiting. He was seen in the [facility] ER this morning. Per their notes he developed left flank pain that began this morning. Dark urine. Workup in the ER this morning showed a white count of 6.3, hemoglobin 14.6, platelet count 235. Urinalysis showed large blood, trace leukocyte esterase. >100 RBC, 0-2 wbc's Sodium 138, potassium 4.2, chloride 104, bicarb 23, glucose 124, calcium 9.0, BUN 16, creatinine 0.79. CT abdomen and pelvis stone protocol Impression: 1. A 6 mm calculus identified at the left ureterovesical junction causing minimal left-sided hydroureter without any hydronephrosis. 2. A 9 mm nonobstructing calculus upper pole calyx left kidney. 3. A tiny 3 mm calcification identified in the dependent portion of the urinary bladder. Given a prescription for Flomax. Ibuprofen 600mg Patient confirms that he had onset of left flank pain radiating into his left lower quadrant and left testicle this morning. It has been coming and going in waves since then. He did go to the ER and was given ibuprofen for pain. This evening the pain flared up substantially the ibuprofen is not sufficient. The pain is so severe he has had a couple of episodes of nonbilious vomiting. Urination has been normal save for some dark-colored urine that was orange is earlier this morning. No dysuria, urgency, frequency. He is not having any fever. Bowel movements have been normal. No known trauma. No abdominal rashes. Related Data Home Medications ?Medication ?Instructions ?Recorded ?Confirmed escitalopram oxalate 10 mg tablet 10 mg PO DAILY 02/1002/10/25 quetiapine 100 mg tablet mg PO 02/10/25 Previous Rx's ?Medication ?Instructions ?Recorded ondansetron HCl 4 mg tablet 4 mg PO Q8H PRN nausea and 04/13/25 vomiting #10 tabs oxycodone-acetaminophen 5 mg-325 1 tab PO Q4-6H PRN pa in #12 tabs 04/13/25 mg tablet (Percocet) Allergies Allergy/AdvReac Type Severity Reaction Status Date / Time acetaminophen (From Vicodin) AdvReac Verified 02/10/25 09:32 hydrocodone (From Vicodin) AdvReac Verified 02/10/25 09:32 [facility] Social History Smoking Status: Former smoker What tobacco products do you use: cigarettes Smoking quit date/years: <= 15 years ago Do you use any of these nicotine containing products: None Second hand tobacco smoke exposure: No How often do you have a drink containing alcohol: never AUDIT-C Alcohol total score: 0 Non-prescribed substance use: marijuana (any form) service: No Exam Narrative: Exam Narrative: Constitutional: Appears well-developed and well-nourished. Alert. Uncomfortable, but Conversant. Non toxic. HENT: Head: Atraumatic. Nose: Nose normal. Mouth/Throat: Oral mucosa is clear and moist. no trismus. Pharynx normal. Tonsils symmetric. No tonsillar enlargement, erythema, or exudate. Eyes: Conjunctivae normal. EOM normal. Pupils equal, round, and reactive to light. No scleral icterus. Neck: Normal range of motion. Neck supple. No tracheal deviation present. Cardiovascular: Normal rate, regular rhythm. No gallop. No friction rub. No murmur heard. Symmetric radial artery pulses Pulmonary/Chest: Effort normal. No stridor. No respiratory distress. No wheezes. No rales. No rhonchi . No tenderness. Abdominal: Soft. Bowel sounds normal. No distension. No mass. Left CVA> left lower quadrant tenderness. No rebound. No guarding. Musculoskeletal: RUE: Normal range of motion. No tenderness. No deformity LUE: Normal range of motion. No tenderness. No deformity RLE: Normal range of motion. No edema. No tenderness. No deformity LLE: Normal range of motion. No edema. No tenderness. No deformity Neurological: Alert and oriented to person, place, and time. Normal strength. CN II-VII intact. No sensory deficit. GCS eye subscore is 4. GCS verbal subscore is 5. GCS motor subscore is 6. Normal coordination Skin: Skin is warm and dry. No rash noted. No pallor. Normal capillary refill. Psychiatric: Normal mood. Normal affect. Const: Vital Signs, click to edit/add: Vital Signs - 24 hr 04/13/25 21:41 Temperature 98.7 F Pulse Rate [Pulse Oximeter] 66 Respiratory Rate 18 Blood Pressure [Ri ght Upper Arm] 161/67 H Pulse Oximetry 96 Oxygen Delivery Me thod Room Air Course Vital Signs Vital signs: Initial Vital Signs Temperature 98.7 F 04/13/25 21:41 Temperature Source Temporal Artery Scan 04/13/25 21:41 Pulse Rate 66 04/13/25 21:41 Respiratory Rate 18 04/13/25 21:41 Blood Pressure 161/67 H 04/13/25 21:41 Blood Pressure Mean 98 04/13/25 21:41 Blood Pressure Position Sitting 04/13/25 21:41 Pulse Oximetry 96 04/13/25 21:41 Oxygen Delivery Method Room Air 04/13/25 21:41 Vital Signs Temperature 98.7 F 04/13/25 21:41 Pulse Rate 66 04/13/25 21:41 Respiratory Rate 18 04/13/25 21:41 Blood Pressure 161/67 H 04/13/25 21:41 Pulse Oximetry 96 04/13/25 21:41 Oxygen Delivery Method Room Air 04/13/25 21:41 Temperature 98.7 F 04/13/25 21:41 Pulse Rate 66 04/13/25 21:41 Respiratory Rate 18 04/13/25 21:41 Blood Pressure 161/67 H 04/13/25 21:41 Pulse Oximetry 96 04/13/25 21:41 Oxygen Delivery Method Room Air 04/13/25 21:41 Medications Administered Medications: Discontinued Medications Generic Name Dose Route Start Last Admin Trade Name Freq PRN Reason Stop Dose Admin Hydromorphone HCl 0.5 mg 04/13/25 22:22 04/13/25 22:40 Hydromorphone 0.5 Mg/0.5 Ml Inj IVP 0.5 mg Q1H PRN Administration Pain Ondansetron HCl 4 mg 04/13/25 22:22 04/13/25 22:39 Ondansetron 2 Mg/Ml Inj IVP 04/13/25 22:23 4 mg ONCE ONE Administration Ondansetron HCl 4 mg 04/13/25 23:57 04/14/25 00:37 Ondansetron Odt 4 Mg Tab PO 04/13/25 23:58 Not Given ONCE ONE Oxycodone/Acetaminophen 2 tab 04/13/25 23:57 04/14/25 00:37 Oxycodone/Apap 5-325 Tablet PO 04/13/25 23:58 Not Given ONCE ONE Medical Decision Making MDM Narrative Medical decision making narrative: This patient presents with left flank pain radiating to his left lower quadrant. Differential Diagnosis considered includes: Ureterolithiasis, UTI, pyelonephritis, AAA, colitis, diverticulitis, volvulus,, among others. At this point, the evaluation indicates that ureterolithiasis is the cause of the patient's symptoms. He already had a CT scan done at the [place] ER this morning they confirmed an obstructing 6 mm stone in the left ureter at the UVJ. At this point I do taking needs repeat imaging with CT or renal ultrasound. We did repeat labs make sure there was no acute kidney injury infection. There are no signs that this is an infected stone. The patient's pain is controlled in ED. The patient is hemodynamically stable in ED. I think the patient is safe for discharge. The plan is discharge to home with recheck by primary care physician or urology.They will return to the ED right away if symptoms worsen (e.g Return immediately for fevers greater than 102, increasing pain, other new symptoms develop). Ureterolithiasis precautions for home. Prescriptions for pain control, nausea control, and flomax were provided. The patient's questions were answered. He was apparently given a referral to Urology when he was at the [place] ER this morning. He anticipates a get a call back from the [facility] [place] tomorrow morning. I encouraged him to call them to arrange an ER follow-up visit so that if he has not passed the stone within the next week or so urology will be able to assist. Prescriptions for oxycodone and Zofran provided. He will continue his ibuprofen as 1st line. Unfortunately, [facility] is not stocked tonight. Therefore we did send him home with a supply of oxycodone pills that he can use overnight and sent a prescription for oxycodone to his pharmacy. Opiate precautions reviewed. Lab Data Labs: Lab Results 04/13/25 04/13/25 Range/Units 22:23 22:34 WBC 8.79 (4.50-11.00) K/uL RBC 4.78 (4.30-5.90) m/uL Hgb 13.8 (13.5-17.5) gm/dL Hct 40.8 (37.0-53.0) % MCV 85 (80-100) fL MCH 29 (26-34) pg MCHC 34 (32-36) gm/dL RDW Coeff of Yunior 14.4 (11.5-15.5) % Plt Count 233 (140-440) K/uL Neut % (Auto) 71.7 (42.0-72.0) % Lymph % (Auto) 20.8 (20-44) % Cotton % (Auto) 5.9 (0.0-11.0) % Eos % (Auto) 1.3 (0.0-7.0) % Baso % (Auto) 0.2 (0.0-3.0) % Neut # (Auto) 6.30 (1.7-7.0) K/uL Lymph # (Auto) 1.83 (0.90-2.90) K/uL Cotton # (Auto) 0.50 (0.00-0.90) K/UL Eos # (Auto) 0.11 (0.00-0.50) K/uL Baso # (Auto) 0.02 (0.00-0.30) K/uL Abs Immat Gran (auto) 0.01 (0.00-0.30) K/uL Imm/Tot Granulo (auto) 0.1 % Sodium 137 (135-149) mmol/L Potassium 4.0 (3.6-5.1) mmol/L Chloride 104 (96-114) mmol/L Carbon Dioxide 27 (20-32) mmol/L Anion Gap 6 L (7-15) mEq/L BUN 20 (7-30) mg/dL Creatinine 0.9 (0.5-1.5) mg/dL Estimated Creat Clear 85.62 Estimated GFR 103 ml/min Glucose 130 H (60-115) mg/dL Calcium 8.9 (8.4-10.6) mg/dL Urine Color Yellow (Yellow) Urine Appearance Clear (Clear) Urine pH 6.0 (5.0-8.5) Ur Specific [place] 1.025 (1.000-1.030) Urine Protein 1+ A (Negative) Urine Glucose (UA) Negative (Negative) Urine Ketones Negative (Negative) Urine Blood 3+ A (Negative) Urine Nitrite Negative (Negative) Urine Bilirubin Negative (Negative) Urine Urobilinogen 0.2 (0.2-1.0) Ur Leukocyte Esterase Negative (Negative) Urine RBC 5-10 A (0-2) Urine WBC 0-2 (0-5) Ur Squamous Epith Cells None (None-Few) Urine Bacteria None (None) Discharge Plan Discharge Clinical Impression: Kidney stone on left side Patient Disposition: Home, Self-Care Condition: Stable Instructions: Kidney Stones (ED) Additional Instructions: As we discussed, to control the pain for few kidney stone, try to drink plenty of fluids and stay hydrated. Use Tylenol or ibuprofen 1st for pain. Use the prescription pain killer if needed. Use caution with prescription pain killer because it can cause dizziness, drowsiness, constipation, and can be addictive. Please call tomorrow morning to arrange the soonest possible follow-up with your urologist that you refer to by the [facility]. Prescriptions: New oxycodone-acetaminophen [Percocet] 5-325 mg tablet 1 tab PO Q4-6H PRN (Reason: pain) Qty: 12 0RF ondansetron HCl 4 mg tablet 4 mg PO Q8H PRN (Reason: nausea and vomiting) Qty: 10 0RF No Action quetiapine 100 mg tablet PO escitalopram oxalate 10 mg tablet 10 mg PO DAILY Follow Up/Referrals: Todd Brock MD [Primary Care Provider, Family Practice] Stand Alone Forms: Work/School Release, Prot-On Info Instructions
[2025-04-13 22:37] LABS: Hematocrit* 40.8 % (37.0-53.0); Hemoglobin* 13.8 gm/dL (13.5-17.5); Immature Granulocytes Abs Auto 0.01 K/uL (0.00-0.30); Immature Granulocytes Pct Auto 0.1 %; Lymphocytes Absolute Auto 1.83 K/uL (0.90-2.90); Mean Corpuscular HGB Conc 34 gm/dL (32-36); Mean Corpuscular Hemoglobin 29 pg (26-34); Mean Corpuscular Volume 85 fL (80-100); RDW Coefficient of Variation % 14.4 % (11.5-15.5); Red Blood Count* 4.78 m/uL (4.30-5.90); White Blood Count* 8.79 K/uL (4.50-11.00)
[2025-04-13 22:39] LABS: Slide Review Reflex No
[2025-04-13] MEDS: ONDANSETRON 2 MG/ML inj 4 MG IVP (22:39)
[2025-04-13 22:48] LABS: Chloride* 104 mmol/L (96-114)
[2025-04-13 22:49] LABS: Potassium* 4.0 mmol/L (3.6-5.1); Sodium* 137 mmol/L (135-149)
[2025-04-13 22:52] LABS: Anion Gap 6 mEq/L (7-15); Blood Urea Nitrogen* 20 mg/dL (7-30); Calcium* 8.9 mg/dL (8.4-10.6); Carbon Dioxide* 27 mmol/L (20-32); Creatinine* 0.9 mg/dL (0.5-1.5); Est. Creatinine Clearance* 85.62; Estimated Glomerular Filt Rate 103 ml/min; Glucose* 130 mg/dL (60-115)
[2025-04-13 23:13] LABS: Appearance Urine Clear (Clear)
== END 2025-04-14 00:51 | disposition home or self-care (01) ==
PROVIDERS: Emergency Provider Emergency Medicine; PCP Family Medicine
DX: N20.0 Calculus of kidney (principal)
CPT/HCPCS: 36415; 80048; 81001; 85025; 96374; 96375; 99283; 99284; J1171; J2405

== ENCOUNTER 2025-04-24 21:23 | Emergency (ER) | payer OTHER, SELFPAY ==
--- OUTSIDE RECORDS SUMMARY | 2025-04-24 21:25 | XMS_ITS | Clinical Summary ---
Author Organization [facility] Address [address] [place] [id number] Care Team Providers Care Bobbin Winder Name Role Phone Pcp, No Primary Care [...] 24 hours. 30 tablet 08/20/2019 11:21 AM LAW OFFICE ASSISTANT 0 Active QUEtiapine (SeroqueL XR) 150 mg Tb24 Extended-Relea se tablet Take 150 mg by mouth at bedtime. Active ibuprofen (ADVIL; MOTRIN) 600 mg tabletIndicati ons:Nephrolith iasis Take 1 Tablet (600 mg) by mouth every 6 hours if needed for Pain. Maximum of 3200 mg in 24 hours. 15 Tablet 5 Active buPROPion (WELLBUTRIN XL) 300 mg Extended-Relea [...] Discontinu ed(*Patien t states no longer taking) tamsulosin 0.4 mg capsuleIndicat ions:Nephrolit hiasis,Hydrour eter, left Take 1 Capsule (0.4 mg) by mouth at bedtime for 10 days. 10 Capsule 5 04/23/20 25 Active Problems Problem Noted Date Diagnosed Date [...] CDT - 04/13/2025 11:49 AM CDT Emergency [facility] [address] [place] [address] Radu Vincent MD Nephrolithiasis (Primary Dx); Hydroureter, [...] on file Legal Sex Male 6:59 AM LAW OFFICE ASSISTANT Gender Identity Not on file Sexual Orientation [...] booster 04/27/2025 04/27/2015, 03/2011 (Completed outside of [facility]), 01/27/2009, Additional history exists RSV vaccine for adults or (1 - 1-dose 75+ series) 01/05/2048 Medical Devices Implanted Type Area Blockmason Device Identifier Shelf Expiration Date Model / Serial / Lot Ancr Sut 2.9x12.5mm Pushlock Bio-Comp - [id number] Implanted:Qty: 2 on 08/20/2019 by Eliezer Seals MD at [facility] Left: Shoulder [employer] 05/06/2021 AR-[id number]# / / [id number] Ancr Sut 2.9x12.5mm Pushlock Bio-Comp - [id number] Implanted:Qty: 1 on 08/20/2019 by Eliezer Seals MD at [facility] Left: Shoulder [employer] 04/06/2021 AR-2923BC# / / [id number] Sut [employer] Prox Tenodesis Implnt Kit Rev 0 - [id number] Implanted:Qty: 1 on 08/20/2019 by Eliezer Seals MD at [facility] Left: Shoulder [employer] 05/06/2024 AR-2290# / / [id number] Procedures Procedure Name Priority Date/Time Associated Diagnosis [...] @ Apr 13 2025 10:43AM (Electronically Signed) [email or web address] Procedure Note Kezia Hodgson MBBS - 04/13/2025 [...] @ Apr 13 2025 10:43AM (Electronically Signed) [email or web address] Radu Vincent MD CT Final Result * (ABNORMAL) URINALYSIS MICROSCOPIC (04/13/2025 9:30 AM CDT) RBC >100(A) 0-2, None Seen /HPF 04/13/2025 9:52 AM CDT [facility] WBC 0-2 0-2, 3-5, None Seen /HPF 04/13/2025 9:52 AM CDT [facility] BACTERIA Rare None Seen, Rare, Few Bacteria/H PF 04/13/2025 9:52 AM CDT [facility] EPITHELIAL CELLS Few None Seen, Few Epi/HPF 04/13/2025 9:52 AM CDT [facility] Urine URINE SPECIMEN / Unknown Non-Blood / Unknown 04/13/2025 9:30 AM CDT 04/13/2025 9:36 AM CDT Radu Vincent MD URINE Final Result [facility] [address] [place] [address] * (ABNORMAL) UA W/ SEDIMENT EXAM REFLEXED PER CRITERIA (04/13/2025 9:30 AM CDT) COLOR Yellow Yellow Color 04/13/2025 9:42 AM CDT [facility] CLARITY Cloudy(A) Clear Clarity 04/13/2025 9:42 AM CDT [facility] SPECIFIC GRAVITY,URINE 1.015 1.010, 1.015, 1.020, 1.025 04/13/2025 9:42 AM CDT [facility] PH,URINE 7.0 6.0, 7.0, 8.0, 5.5, 6.5, 7.5, 8.5 04/13/2025 9:42 AM CDT [facility] UROBILINOGEN, QUALITATIVE Normal Normal EU/dl 04/13/2025 9:42 AM T [facility] PROTEIN, URINE Negative Negative mg/dL 04/13/2025 9:42 AM T [facility] GLUCOSE, URINE Negative Negative mg/dL 04/13/2025 9:42 AM T [facility] KETONES,URINE Negative Negative mg/dL 04/13/2025 9:42 AM T [facility] BILIRUBIN,URI NE Negative Negative 04/13/2025 9:42 AM T [facility] OCCULT BLOOD,URINE Large(A) Negative 04/13/2025 9:42 AM [facility] NITRITE Negative Negative 04/13/2025 9:42 AM [facility] LEUKOCYTE ESTERASE Trace(A) Negative 04/13/2025 9:42 AM [facility] Urine URINE SPECIMEN / Unknown Non-Blood / Unknown 04/13/2025 9:30 AM CDT 04/13/2025 9:36 AM CDT Raud Vincent MD URINE Final Result [facility] [address] [place] [address] * CBC W PLT NO DIFF (04/13/2025 9:25 AM CDT) WHITE BLOOD COUNT 6.3 4.5 - 11.0 thou/cu mm 04/13/2025 9:37 AM [facility] RED BLOOD COUNT 5.04 4.30 - 5.90 mil/cu mm 04/13/2025 9:37 AM [facility] HEMOGLOBIN 14.6 13.5 - 17.5 g/dL 04/13/2025 9:37 AM [facility] HEMATOCRIT 42.9 37.0 - 53.0 % 04/13/2025 9:37 AM [facility] MCV 85 80 - 100 fL 04/13/2025 9:37 AM [facility] MCH 29.0 26.0 - 34.0 pg 04/13/2025 9:37 AM [facility] MCHC 34.0 32.0 - 36.0 g/dL 04/13/2025 9:37 AM [facility] RDW 14.5 11.5 - 15.5 % 04/13/2025 9:37 AM [facility] PLATELET COUNT 235 140 - 440 thou/cu mm 04/13/2025 9:37 AM [facility] MPV 9.4 6.5 - 11.0 fL 04/13/2025 9:37 AM [facility] Blood BLOOD SPECIMEN / Unknown IV Start / Unknown 04/13/2025 9:25 AM T 04/13/2025 9:34 AM [facility] - 04/13/2025 9:37 AM CDT RN to order if patient presents with abdominal pain. Rdau Vincent MD HEMATOLOGY Final Result [facility] [address] [place] [address] * (ABNORMAL) BASIC METABOLIC PANEL (04/13/2025 9:25 AM T) SODIUM 138 136 - 145 mmol/L 04/13/2025 9:55 AM [facility] POTASSIUM 4.2 3.5 - 5.1 mmol/L 04/13/2025 9:55 AM [facility] CHLORIDE 104 98 - 107 mmol/L 04/13/2025 9:55 AM [facility] CO2,TOTAL 23 22 - 29 mmol/L 04/13/2025 9:55 AM [facility] ANION GAP 11 5 - 18 04/13/2025 9:55 AM [facility] GLUCOSE 124(H) 70 - 99 mg/dL 04/13/2025 9:55 AM [facility] CALCIUM 9.0 8.8 - 10.4 mg/dL 04/13/2025 9:55 AM [facility] Comment: Reference ranges for this test were updated on 06/11/2024 to reflect our healthy population more accurately. Reference range changes are not retroactively applied to results, but previous results using the same methodology can be interpreted in the context of the new reference range. BUN 16 6 - 20 mg/dL 04/13/2025 9:55 AM T [facility] CREATININE 0.79 0.70 - 1.20 mg/dL 04/13/2025 9:55 AM [facility] BUN/CREAT RATIO 20 10 - 20 9:55 AM T [facility] eGFR >90 >90 mL/min/1. 73m2 04/13/2025 9:55 AM [facility] Comment:As of 2021, eG FR [...] CDT Radu Vincent MD CHEMISTRY Final Result [facility] [address] [place] [id number] from Last 3 Months Insurance MEDICAID [facility] Member Subscriber Plan / Payer (Ef fective 2025-Present) Name:Ruddy Dowd Relation to Subscriber:Self Name:Ruddy Dowd Payer ID:Not on file Group ID:Not on file Type:Not on file Address: [employer] Advance Directives * Full Code (Latest Code Status on File) Date Activated Date Inactivated Comments 08/20/2019 7:16 AM 08/20/2019 1:52 PM Question Answer Comments Code Status Discussion: Not Discussed Care Teams Bobbin Winder Relationship Specialty Start Date End Date Pcp, No . PCP - General 01/26/22
--- OUTSIDE RECORDS SUMMARY | 2025-04-24 21:25 | XMS_ITS | Clinical Summary ---
Author Organization [facility] Address [address] [place] [address] Care Team Providers Care Computer Aided Drafter Name Role Phone Todd Brock M.D. Primary Care Mikki gabriel Source Comments Patient records contain information from all sites at [facility]. For routine questions regarding patient records, call [phone] during business hours, M-F 8:00 AM - 5:00 PM Central Time. Record requests for emergency care only can be directed to [phone] at any time.[facility] Allergies Active Allergy Reactions Criticality Noted Date [...] (12/13/2021): Added automatically from request for surgery [id number] Pain Hand Right 12/13/2021 Overview (12/13/2021): Added automatically from request for surgery [id number] Arthritis Finger 12/13/2021 Mallet Finger Acquired Right 08/23/2021 Overview (08/23/2021): Added automatically from request for surgery [id number] Major Depressive Disorder, Recurrent, Unspecifie d 03/13/2019 [...] drink = 0.6 oz pur e alcohol) [facility] Utilities Answer Date Recorded In the past 12 months has e [employer], gas, oil, or water [employer] threatened to shut off services in your [...] your living situation today? I have a [facility] place to live 11/12/2024 Education Answer Date Recorded What is the highest level of school you have completed or the highest degree you have received? GED or equivalent Sex and Gender Information Value Date Recorded Sex Assigned at Male 10/01/2021 12:10 PM CHAIR INSPECTOR AND LEVELER Legal Sex Male 8:53 PM CHAIR INSPECTOR AND LEVELER Gender Identity Male 10/01/2021 12:10 PM CHAIR INSPECTOR AND LEVELER Sexual Orientation Straight 10/01/2021 12 :10 PM CHAIR INSPECTOR AND LEVELER Last Filed Vital Signs Vital Sign Reading [...] this topic Medical Devices Implanted Type Area International Bank Manager Device Identifier Shelf Expiration Date Model / Serial / Lot Kwire Fix Stn Ss Bth 0.045x6 - [id number] Implanted:Qty: 3 on 08/31/2021 by Dai Springer M.D. at [facility] Hardware e.g. pins/screws /rods Right: Ring Finger [place] [id number] / / Compression Ft Screws, Cannulated, Titanium Implanted:Qty: 1 on 01/07/2022 by Dai Springer M.D. at [facility] Hardware e.g. pins/screws /rods Right: Hand Arthrex [id number] / / Explanted Type Area International Bank Manager Device Identifier Shelf Expiration Date Model / Serial / Lot Kwire Fix Stn Ss Bt 0.045x6 - [id number] Explanted:Qty : 1 on 08/31/2021 by Dai Springer M.D. at [facility] Hardware e.g. pins/screws /rods Right: Ring Finger [place] [id number] / / Procedures Procedure Name Priority Date/Time Associated Diagnosis Comments HCV AB SCRN W/REFLEX TO HCV PCR, S Routine 12/19/2022 8:05 AM CDT Screening For Venereal Disease GLUCOSE, FASTING, S/P Routine 08/18/2021 11:54 AM CHAIR INSPECTOR AND LEVELER Moderate Or Severe Use Disorder (Dependence) Alcohol Remission (HCC) Depression Major Recurrent (HCC) General Medical Examination Adult LIPID PANEL, S Routine 08/18/2021 11:54 AM CHAIR INSPECTOR AND LEVELER Moderate Or Severe Use Disorder (Dependence) Alcohol Remission (HCC) Depression Major Recurrent (HCC) General Medical Examination Adult from Last 3 Months or Most Recently Relevant to Health Maintenance Results * HCV Ab Scrn w/Reflex to HCV PCR, Serum (12/19/2022 8:05 AM CDT) [facility] HCV Ab Screen, S Negative Negative 12/20/19 3:32 PM CDT MKTO Comment: Biotin has been identified by the assembler adjuster as a potential interfering substance. Higher concentrations [...] 3:32 PM CDT Specimen Information: Specimen ID: [id number] Specimen Type: Blood Specimen Collection Start Date: 12/19/2022 8:05 AM Specimen Received Date: 12/19/2022 2:14 PM Specimen ID: [id number] Specimen Type: Blood Specimen Collection Start Date: 12/19/2022 8:05 AM Todd Reyes M.D. LAB MICROBIOLOG Y - BLOOD ORDERABLES Final Result [facility] [address] [place] [address], [facility] MKTO [facility] [place] [address] [place] [address] * (ABNORMAL) Lipid Panel (08/18/2021 11:54 AM CHAIR INSPECTOR AND LEVELER) [facility] Cholesterol, Total 301(H) mg/dL 2021 4:04 PM CHAIR INSPECTOR AND LEVELER OWAT Comment: ----REFERENCE VALUE---- Desirable: < 200 Borderline high: 200 - 239 High: > or = 240 Triglycerides 177(H) mg/dL 08/18/2021 4:04 PM CHAIR INSPECTOR AND LEVELER OWAT Comment: ----REFERENCE VALUE---- Normal: <150 Borderline high: 150-199 High: 200-499 Very high: > or =500 Cholesterol, HDL 55 >=40 mg/dL 08/18/2021 4:04 PM CHAIR INSPECTOR AND LEVELER OWAT Calculated LDL 211(H) mg/dL 08/18/2021 4:04 PM CHAIR INSPECTOR AND LEVELER OWAT Comment: The markedly elevated LDL level is suggestive of a genetic condition such as familial hypercholesterolemia (FH) or familial defective apolipoprotein B-100 (FDB). Molecular genetic testing for FH and FDB is available through [facility] Laboratories: Hypercholesterolemia Gene Panel (test FHRGP). Acquired (non-genetic) causes of markedly increased LDL cholesterol include cholestatic liver disease due to the presence of LpX. If a genetic form of hypercholesterolemia is suspected, family studies including biochemical testing for lipids (total cholesterol, triglycerides, LDL cholesterol and HDL cholesterol) are recommended. Please contact the laboratory at or the on-line test catalog at [employer] for information about how to order these tests or to speak with a genetic counselor. Further interpretation would require clinical information. ----REFERENCE VALUE---- Desirable: <100 mg/dL Above Desirable: 100-129 mg/dL Borderline High: 130-159 mg/dL High: 160-189 mg/dL Very High: >=190 mg/dL Cholesterol, Non-HDL, Calculated 246(H) mg/dL 08/18/2021 4:04 PM CHAIR INSPECTOR AND LEVELER OWAT Comment: ----REFERENCE VALUE---- Desirable: <130 Above Desirable: 130-159 Borderline high: 160-189 High: 190-219 Very high: > or =220 Blood (Blood, Venous) 08/18/2021 11:54 AM CHAIR INSPECTOR AND LEVELER 08/18/2021 3:46 PM CHAIR INSPECTOR AND LEVELER Mercy Sauceda M.D. LAB BLOOD ADD-ON Final Re sult Performing Organization Address [facility] Co de Phone Number [facility] [address] [place] [address], [facility] OWAT [facility] [place] [address] [place] [address] * Glucose, Fasting (08/18/2021 11:54 AM CHAIR INSPECTOR AND LEVELER) Glucose, P 96 70 - 100 mg/dL 08/18/2021 1:46 PM CHAIR INSPECTOR AND LEVELER OWAT Last Intake 18 hr 08/18/2021 1:07 PM CHAIR INSPECTOR AND LEVELER OWAT Blood (Blood, Venous) 08/18/2021 11:54 AM CHAIR INSPECTOR AND LEVELER 08/18/2021 1:07 PM CHAIR INSPECTOR AND LEVELER Mercy Sauceda M.D. LAB BLOOD NON ADD-ON Ema l Result Performing Organization Address [facility]/ZIP Co de Phone Number [facility] [address] [place] [address], [facility] OWAT [facility] [place] [address] [place] [address] from Last 3 Months or Most Recently Relevant to Health Maintenance Care Teams Computer Aided Drafter Relationship Specialty Start Date End Date Todd Brock M.B.B.S., Ramez. [address] [place] [phone] PCP - General Family Medicine 10/18/22
[2025-04-24 21:52] VITALS: BP 122/75; PULSE 96; RESP 16; TEMP 36.8; O2SAT 96; BMI 21.0
[2025-04-24 22:03] LABS: Appearance Urine Clear (Clear)
--- NOTE | 2025-04-24 22:57 | ED_ITS ---
HPI - General Adult General Chief complaint: Flank Pain Stated complaint: abdominal pain - kidney stones Time Seen by Provider: 04/24/25 22:49 History of Present Illness HPI narrative: 50-year-old gentleman with a past medical history of recent kidney stone (diagnosed on CT scan on 04/13/2025 at [facility]. 6 mm stone in the left UVJ (also an incidental 9 mm stone in the upper pole of left kidney). He had been seen initially in the [place] ER and sent home only with ibuprofen. He came to our ER that day on 04/13 plan control pain so I gave her prescription for oxycodone/Percocet. He has been taking those meds but ran out. Today had a flare-up in pain that is not controlled by ibuprofen.. He has been in contact with his urologist. He has an appointment next Monday on 04/29 to see a urologist in the [place] office at 10:00 a.m. in the morning. He came to the ER tonight desiring better pain control because he is having bad left flank pain. He has not had any fever. No nausea vomiting. Normal urine output. He had been taking his Flomax but ran out of that a couple of days ago as well. Related Data Home Medications ?Medication ?Instructions ?Recorded ?Confirmed escitalopram oxalate 10 mg tablet 10 mg PO DAILY 02/1004/24/25 quetiapine 100 mg tablet mg PO 02/10/25 quetiapine 150 mg tablet 150 mg PO QPM 04/24/2504/24 Previous Rx's ?Medication ?Instructions ?Recorded ondansetron HCl 4 mg tablet 4 mg PO Q8H PRN nausea and 04/13/25 vomiting #10 tabs oxycodone-acetaminophen 5 mg-325 1 tab PO Q4-6H PRN pa in #12 tabs 04/13/25 mg tablet (Percocet) tamsulosin 0.4 mg capsule (Flomax) 0.4 mg PO DAILY #7 caps 04/24/25 Allergies Allergy/AdvReac Type Severity Reaction Status Date / Time acetaminophen (From Vicodin) AdvReac Verified 02/10/25 09:32 hydrocodone (From Vicodin) AdvReac Verified 02/10/25 09:32 PFSH PFSH Social History (Updated 04/14/25 @ 02:19 by Sagar Washington MD) Smoking Status: Former smoker What tobacco products do you use: cigarettes Smoking quit date/years: <= 15 years ago Do you use any of these nicotine containing products: None Second hand tobacco smoke exposure: No How often do you have a drink containing alcohol: never AUDIT-C Alcohol total score: 0 Non-prescribed substance use: marijuana (any form) service: No Exam Narrative: Exam Narrative: Constitutional: Appears well-developed and well-nourished. Alert. Conversant. Non toxic. HENT: Head: Atraumatic. Nose: Nose normal. Mouth/Throat: Oral mucosa is clear and moist. no trismus. No trismus Eyes: Conjunctivae normal. EOM normal. Pupils equal, round, and reactive to light. No scleral icterus. Neck: Normal range of motion. Neck supple. No tracheal deviation present. Cardiovascular: Normal rate, regular rhythm. No gallop. No friction rub. No murmur heard. Pulmonary/Chest: Effort normal. No stridor. No respiratory distress. No wheezes. No rales. No rhonchi . No tenderness. Abdominal: Soft.No distension. No mass. Left CVA tenderness. No anterior abdominal tenderness. No rebound. No guarding. Musculoskeletal: RUE: Normal range of motion. No tenderness. No deformity LUE: Normal range of motion. No tenderness. No deformity RLE: Normal range of motion. No edema. No tenderness. No deformity LLE: Normal range of motion. No edema. No tenderness. No deformity Neurological: Alert and oriented to person, place, and time. Normal strength. CN II-VII intact. No sensory deficit. GCS eye subscore is 4. GCS verbal subscore is 5. GCS motor subscore is 6. Normal coordination Skin: Skin is warm and dry. No rash noted. No pallor. Normal capillary refill. Psychiatric: Normal mood. Normal affect allowing for pain. Const: Vital Signs, click to edit/add: Vital Signs - 24 hr 04/24/25 21:52 04/24/25 23:05 Temperature 98.2 F 98.2 F Pulse Rate [Pulse Oximeter] 96 85 Respiratory Rate 16 16 Blood Pressure [Ri ght Upper Arm] 122/75 118/70 Pulse Oximetry 96 96 Oxygen Delivery Me thod Room Air Room Air Course Vital Signs Vital signs: Initial Vital Signs Temperature 98.2 F 04/24/25 21:52 Temperature Source Temporal Artery Scan 04/24/25 21:52 Pulse Rate 96 04/24/25 21:52 Respiratory Rate 16 04/24/25 21:52 Blood Pressure 122/75 04/24/25 21:52 Blood Pressure Mean 90 04/24/25 21:52 Blood Pressure Position Sitting 04/24/25 21:52 Pulse Oximetry 96 04/24/25 21:52 Oxygen Delivery Method Room Air 04/24/25 21:52 Vital Signs Temperature 98.2 F 04/24/25 21:52 Pulse Rate 96 04/24/25 21:52 Respiratory Rate 16 04/24/25 21:52 Blood Pressure 122/75 04/24/25 21:52 Pulse Oximetry 96 04/24/25 21:52 Oxygen Delivery Method Room Air 04/24/25 21:52 Temperature 98.2 F 04/24/25 23:05 Pulse Rate 85 04/24/25 23:05 Respiratory Rate 16 04/24/25 23:05 Blood Pressure 118/70 04/24/25 23:05 Pulse Oximetry 96 04/24/25 23:05 Oxygen Delivery Method Room Air 04/24/25 23:05 Medications Administered Medications: Generic Name Dose Route Start Last Admin Trade Name Freq PRN Reason Stop Dose Admin Oxycodone/Acetaminophen 1 tab 04/24/25 22:59 04/24/25 23:02 Oxycodone/Apap 5-325 Tablet PO 04/24/25 23:00 1 tab ONCE ONE Administration Medical Decision Making [facility] Narrative Medical decision making narrative: 50-year-old male with a known 6 mm left UVJ kidney stone presenting to the ER today with a flare up of left flank pain. He is out of his previous opiate pain meds so came back to the ER tonight. He does have a confirm stone diagnosed last Monday and has not yet seen his urologist (he has an appointment with [place] [facility] next Monday). Differential Diagnosis considered includes: Ureterolithiasis, UTI, pyelonephritis, AAA, colitis, diverticulitis, volvulus,, among others. At this point, the evaluation indicates that ureterolithiasis is the cause of the patient's symptoms. He already had a CT scan done at the [place] ER which showed obstructing 6 mm stone in the left ureter at the UVJ. At this point I do taking needs repeat imaging with CT or renal ultrasound. We did urinalysis today which does not show any sign of infection. There are no signs that this is an infected stone. The patient's pain is controlled in ED. he has been making urine normally and has no symptoms to suggest renal failure so would hold off on repeat lab work. The patient is hemodynamically stable in ED. I think the patient is safe for discharge. He is primarily here just to get pain control so that he can stay comfortable until he has an appointment with Urology next week. We gave him a dose of Percocet here in the ER. Instymeds prescription for oxycodone- #12. Opiate precautions reviewed with the patient and his family. Also will send a refill to his pharmacy for Flomax. Precautions for return to the ER reviewed. Need for follow-up with Urology reviewed. Lab Data Labs: Lab Results 04/24/25 Range/Units 21:55 Urine Color Yellow (Yellow) Urine Appearance Clear (Clear) Urine pH 5.5 (5.0-8.5) Ur Specific [place] >= 1.030 (1.000-1.030) Urine Protein 1+ A (Negative) Urine Glucose (UA) Negative (Negative) Urine Ketones Negative (Negative) Urine Blood Negative (Negative) Urine Nitrite Negative (Negative) Urine Bilirubin Negative (Negative) Urine Urobilinogen 0.2 (0.2-1.0) Ur Leukocyte Esterase Negative (Negative) Urine RBC 0-2 (0-2) Urine WBC 0-2 (0-5) Ur Squamous Epith Cells None (None-Few) Urine Bacteria None (None) Discharge Plan Discharge Clinical Impression: Kidney stone on left side Patient Disposition: Home, Self-Care Condition: Stable Instructions: Kidney Stones (ED) Additional Instructions: As we discussed, please follow-up with urologist by Monday. If you have worsening or severe pain, please return to the ER right away. Use caution with prescription pain killers because they can be addictive and they can cause dizziness, drowsiness constipation. Do not drive a car for 6 hours after taking oxycodone. Continue to drink fluids and stay hydrated. Use ibuprofen or Tylenol for his her 1st line for pain control. Take Flomax once daily to try to help relax the ureter where the stone is stuck. Prescriptions: New tamsulosin [Flomax] 0.4 mg capsule 0.4 mg PO DAILY Qty: 7 2RF No Action quetiapine 100 mg tablet PO escitalopram oxalate 10 mg tablet 10 mg PO DAILY oxycodone-acetaminophen [Percocet] 5-325 mg tablet 1 tab PO Q4-6H PRN (Reason: pain) Qty: 12 0RF ondansetron HCl 4 mg tablet 4 mg PO Q8H PRN (Reason: nausea and vomiting) Qty: 10 0RF quetiapine 150 mg tablet 150 mg PO QPM Follow Up/Referrals: Todd Brock MD [Primary Care Provider, Family Practice] Stand Alone Forms: [facility]
[2025-04-24] MEDS: OxyCODONE/APAP 5-325 TABLET 1 TAB PO (23:02)
[2025-04-24 23:05] VITALS: BP 118/70; PULSE 85; RESP 16; TEMP 36.8; O2SAT 96
[2025-04-24 23:07] VITALS: BP 118/70; PULSE 85; RESP 16; TEMP 36.8
== END 2025-04-24 23:07 | disposition home or self-care (01) ==
LOC: ED 23:03
PROVIDERS: Emergency Provider Emergency Medicine; PCP Family Medicine
DX: N20.0 Calculus of kidney (principal)
CPT/HCPCS: 81001; 99282; 99283; A9270

== ENCOUNTER 2025-04-30 10:32 | Emergency (ER) | payer OTHER, SELFPAY ==
--- OUTSIDE RECORDS SUMMARY | 2025-04-30 10:36 | XMS_ITS | Clinical Summary ---
Author Organization [facility] Address [address] [place] [address] Care Team Providers Care Director Of Investigations Name Role Phone Todd Brock M.D. Primary Care Mikki gabriel Source Comments Patient records contain information from all sites at [facility]. For routine questions regarding patient records, call [phone] during business hours, M-F 8:00 AM - 5:00 PM Central Time. Record requests for emergency care only can be directed to [phone] at any time.[facility] Allergies Active Allergy Reactions Criticality [...] (12/13/2021): Added automatically from request for surgery [id number] Pain Hand Right 12/13/2021 Overview (12/13/2021): Added automatically from request for surgery [id number] Arthritis Finger 12/13/2021 Mallet Finger Acquired Right 08/23/2021 Overview (08/23/2021): Added automatically from request for surgery [id number] Major Depressive Disorder, Recurrent, Unspecifie d 03/13/2019 [...] drink = 0.6 oz pur e alcohol) [facility] Utilities Answer Date Recorded In the past 12 months has e makerist, gas, oil, or water [employer] threatened to shut off services in your [...] your living situation today? I have a [facility] place to live 11/12/2024 Education Answer Date Recorded What is the highest level of school you have completed or the highest degree you have received? GED or equivalent Sex and Gender Information Value Date Recorded Sex Assigned at Male 10/01/2021 12:10 PM [employer] Legal Sex Male 8:53 PM [employer] Gender Identity Male 10/01/2021 12:10 PM [employer] Sexual Orientation Straight 10/01/2021 12 :10 PM [employer] Last Filed Vital Signs Vital Sign Reading [...] this topic Medical Devices Implanted Type Area Regular Senior Care Provider Device Identifier Shelf Expiration Date Model / Serial / Lot Kwire Fix Stn Ss Bth 0.045x6 - [id number] Implanted:Qty: 3 on 08/31/2021 by Dai Springer M.D. at [facility] Hardware e.g. pins/screws /rods Right: Ring Finger Tracy [id number] / / Compression Ft Screws, Cannulated, Titanium Implanted:Qty: 1 on 01/07/2022 by Dai Springer M.D. at [facility] Hardware e.g. pins/screws /rods Right: Hand Arthrex [id number] / / Explanted Type Area Regular Senior Care Provider Device Identifier Shelf Expiration Date Model / Serial / Lot Kwire Fix Stn Ss Bt 0.045x6 - [id number] Explanted:Qty : 1 on 08/31/2021 by Dai Springer M.D. at [facility] Hardware e.g. pins/screws /rods Right: Ring Finger Tracy [id number] / / Procedures Procedure Name Priority Date/Time Associated Diagnosis Comments HCV AB SCRN W/REFLEX TO HCV PCR, S Routine 12/19/2022 8:05 AM CDT Screening For Venereal Disease GLUCOSE, FASTING, S/P Routine 08/18/2021 11:54 AM [employer] Moderate Or Severe Use Disorder (Dependence) Alcohol Remission (HCC) Depression Major Recurrent (HCC) General Medical Examination Adult LIPID PANEL, S Routine 08/18/2021 11:54 AM [employer] Moderate Or Severe Use Disorder (Dependence) Alcohol Remission (HCC) Depression Major Recurrent (HCC) General Medical Examination Adult from Last 3 Months or Most Recently Relevant to Health Maintenance Results * HCV Ab Scrn w/Reflex to HCV PCR, Serum (12/19/2022 8:05 AM CDT) [facility] HCV Ab Screen, S Negative Negative 12/20/19 3:32 PM CDT MKTO Comment: Biotin has been identified by the city auditor as a potential interfering substance. Higher concentrations of biotin may be found in multivitamins, hair/nail supplements, and workout supplements. If the result does not match clinical observations, repeat testing after patient refrains from the use of supplements for at least 12 hours. Blood (Blood, Venous) 12/19/2022 8:05 AM CDT 12/19/2022 2:14 PM CDT Narrative [facility] - 12/19/2022 3:32 PM CDT Specimen Information: Specimen ID: [id number] Specimen Type: Blood Specimen Collection Start Date: 12/19/2022 8:05 AM Specimen Received Date: 12/19/2022 2:14 PM Specimen ID: [id number] Specimen Type: Blood Specimen Collection Start Date: 12/19/2022 8:05 AM Todd Reyes M.D. LAB MICROBIOLOG Y - BLOOD ORDERABLES Final Result [facility] [address] [place] [address], [facility]TO [facility] [place] [address] [place] [address] * (ABNORMAL) Lipid Panel (08/18/2021 11:54 AM INSPECT[employer]) [facility] Cholesterol, Total 301(H) mg/dL 2021 4:04 PM [employer] [facility]AT Comment: ----REFERENCE VALUE---- Desirable: < 200 Borderline high: 200 - 239 High: > or = 240 Triglycerides 177(H) mg/dL 08/18/2021 4:04 PM [employer] [facility] Comment: ----REFERENCE VALUE---- Normal: <150 Borderline high: 150-199 High: 200-499 Very high: > or =500 Cholesterol, HDL 55 >=40 mg/dL 08/18/2021 4:04 PM [employer] [facility] Calculated LDL 211(H) mg/dL 08/18/2021 4:04 PM [employer] [facility]AT Comment: The markedly elevated LDL level is suggestive of a genetic condition such as familial hypercholesterolemia (FH) or familial defective apolipoprotein B-100 (FDB). Molecular genetic testing for FH and FDB is available through [facility] Laboratories: Hypercholesterolemia Gene Panel (test FHRGP). Acquired (non-genetic) causes of markedly increased LDL cholesterol include cholestatic liver disease due to the presence of LpX. If a genetic form of hypercholesterolemia is suspected, family studies including biochemical testing for lipids (total cholesterol, triglycerides, LDL cholesterol and HDL cholesterol) are recommended. Please contact the laboratory at or the on-line test catalog at [employer] for information about how to order these tests or to speak with a genetic counselor. Further interpretation would require clinical information. ----REFERENCE VALUE---- Desirable: <100 mg/dL Above Desirable: 100-129 mg/dL Borderline High: 130-159 mg/dL High: 160-189 mg/dL Very High: >=190 mg/dL Cholesterol, Non-HDL, Calculated 246(H) mg/dL 08/18/2021 4:04 PM [employer] [facility] Comment: ----REFERENCE VALUE---- Desirable: <130 Above Desirable: 130-159 Borderline high: 160-189 High: 190-219 Very high: > or =220 Blood (Blood, Venous) 08/18/2021 11:54 AM [employer] 08/18/2021 3:46 PM [employer] Mercy Sauceda M.D. LAB BLOOD ADD-ON Final Re sult Performing Organization Address [facility] Co de Phone Number [facility] [address] [place] [address], [facility] OWAT [facility] [place] [address] [place] [address] * Glucose, Fasting (08/18/2021 11:54 AM INSPECT[employer]) Glucose, P 96 70 - 100 mg/dL 08/18/2021 1:46 PM [employer] [facility] Last Intake 18 hr 08/18/2021 1:07 PM [employer] OWAT Blood (Blood, Venous) 08/18/2021 11:54 AM INS[employer] 08/18/2021 1:07 PM [employer] Mercy Sauceda M.D. LAB BLOOD NON ADD-ON Ema l Result Performing Organization Address [facility]/ZIP Co de Phone Number [facility] [address] [place] [address], [facility] OWAT [facility] [place] [address] [address] from Last 3 Months or Most Recently Relevant to Health Maintenance Care Teams Director Of Investigations Relationship Specialty Start Date End Date Todd Brock M.B.B.S., Ramez. [address] [place] [phone] PCP - General Family Medicine 10/18/22
--- OUTSIDE RECORDS SUMMARY | 2025-04-30 10:36 | XMS_ITS | Clinical Summary ---
Author Organization [facility] Address [address] [place] [address] Care Team Providers Care Continuous Mining Operator Name Role Phone Pcp, No Primary Care [...] 24 hours. 30 tablet 08/20/2019 11:21 AM MOSHGIACH 0 Active QUEtiapine (SeroqueL XR) 150 mg [...] CDT - 04/13/2025 11:49 AM CDT Emergency [facility] [address] [place] [address] Radu Vincent MD Nephrolithiasis (Primary Dx); Hydroureter, [...] on file Legal Sex Male 6:59 AM MOSHGIACH Gender Identity Not on file Sexual Orientation [...] 04/27/2025 04/27/2015, 03/2011 (Completed outside of [facility]), 01/27/2009, Additional history exists RSV vaccine for adults or (1 - 1-dose 75+ series) 01/05/2048 Medical Devices Implanted Type Area Repairer Welding Systems And Equipment Device Identifier Shelf Expiration Date Model / Serial / Lot Ancr Sut 2.9x12.5mm Pushlock Bio-Comp - [id number] Implanted:Qty: 2 on 08/20/2019 by Eliezer Seals MD at [facility] Left: Shoulder [employer] 05/06/2021 AR-2923BC# / / [id number] Ancr Sut 2.9x12.5mm Pushlock Bio-Comp - [id number] Implanted:Qty: 1 on 08/20/2019 by Eliezer Seals MD at [facility] Left: Shoulder [employer] 04/06/2021 AR-2923BC# / / [id number] Sut Arthrex Prox Tenodesis Implnt Kit Rev 0 - [id number] Implanted:Qty: 1 on 08/20/2019 by Eliezer Seals MD at [facility] Left: Shoulder [employer] 05/06/2024 AR-2290# / / [id number] Procedures Procedure Name Priority Date/Time Associated Diagnosis [...] @ Apr 13 2025 10:43AM (Electronically Signed) [email or web address] Procedure Note Kezia Hodgson MBBS - 04/13/2025 [...] @ Apr 13 2025 10:43AM (Electronically Signed) [email or web address] Radu Vincent MD CT Final Result * (ABNORMAL) URINALYSIS MICROSCOPIC (04/13/2025 9:30 AM CDT) RBC >100(A) 0-2, None Seen /HPF 04/13/2025 9:52 AM CDT [facility] WBC 0-2 0-2, 3-5, None Seen /HPF 04/13/2025 9:52 AM CDT [facility] BACTERIA Rare None Seen, Rare, Few Bacteria/H PF 04/13/2025 9:52 AM CDT [facility] EPITHELIAL CELLS Few None Seen, Few Epi/HPF 04/13/2025 9:52 AM CDT [facility] Urine URINE SPECIMEN / Unknown Non-Blood / Unknown 04/13/2025 9:30 AM CDT 04/13/2025 9:36 AM CDT Radu Vincent MD URINE Final Result [facility] [address] [place] [address] * (ABNORMAL) UA W/ SEDIMENT EXAM REFLEXED PER CRITERIA (04/13/2025 9:30 AM CDT) COLOR Yellow Yellow Color 04/13/2025 9:42 AM CDT [facility] CLARITY Cloudy(A) Clear Clarity 04/13/2025 9:42 AM CDT [facility] SPECIFIC GRAVITY,URINE 1.015 1.010, 1.015, 1.020, 1.025 04/13/2025 9:42 AM CDT [facility] PH,URINE 7.0 6.0, 7.0, 8.0, 5.5, 6.5, 7.5, 8.5 04/13/2025 9:42 AM CDT [facility] UROBILINOGEN, QUALITATIVE Normal Normal EU/dl 04/13/2025 9:42 AM T [facility] PROTEIN, URINE Negative Negative mg/dL 04/13/2025 9:42 AM T [facility] GLUCOSE, URINE Negative Negative mg/dL 04/13/2025 9:42 AM T [facility] KETONES,URINE Negative Negative mg/dL 04/13/2025 9:42 AM T [facility] BILIRUBIN,URI NE Negative Negative 04/13/2025 9:42 AM T [facility] OCCULT BLOOD,URINE Large(A) Negative 04/13/2025 9:42 AM [facility] NITRITE Negative Negative 04/13/2025 9:42 AM [facility] LEUKOCYTE ESTERASE Trace(A) Negative 04/13/2025 9:42 AM [facility] Urine URINE SPECIMEN / Unknown Non-Blood / Unknown 04/13/2025 9:30 AM CDT 04/13/2025 9:36 AM CDT Radu Vincent MD URINE Final Result [facility] [address] [place] [address] * CBC W PLT NO DIFF (04/13/2025 9:25 AM CDT) WHITE BLOOD COUNT 6.3 4.5 - 11.0 thou/cu mm 04/13/2025 9:37 AM [facility] RED BLOOD COUNT 5.04 4.30 - 5.90 mil/cu mm 04/13/2025 9:37 AM [facility] HEMOGLOBIN 14.6 13.5 - 17.5 g/dL 04/13/2025 9:37 AM [facility] HEMATOCRIT 42.9 37.0 - 53.0 % 04/13/2025 9:37 AM [facility] MCV 85 80 - 100 fL 04/13/2025 9:37 AM [facility] MCH 29.0 26.0 - 34.0 pg 04/13/2025 9:37 AM [facility] MCHC 34.0 32.0 - 36.0 g/dL 04/13/2025 9:37 AM [facility] RDW 14.5 11.5 - 15.5 % 04/13/2025 9:37 AM [facility] PLATELET COUNT 235 140 - 440 thou/cu mm 04/13/2025 9:37 AM [facility] MPV 9.4 6.5 - 11.0 fL 04/13/2025 9:37 AM [facility] Blood BLOOD SPECIMEN / Unknown IV Start / Unknown 04/13/2025 9:25 AM T 04/13/2025 9:34 AM [facility] - 04/13/2025 9:37 AM CDT RN to order if patient presents with abdominal pain. Radu Vincent MD HEMATOLOGY Final Result [facility] [address] [place] [address] * (ABNORMAL) BASIC METABOLIC PANEL (04/13/2025 9:25 AM T) SODIUM 138 136 - 145 mmol/L 04/13/2025 9:55 AM [facility] POTASSIUM 4.2 3.5 - 5.1 mmol/L 04/13/2025 9:55 AM [facility] CHLORIDE 104 98 - 107 mmol/L 04/13/2025 9:55 AM [facility] CO2,TOTAL 23 22 - 29 mmol/L 04/13/2025 9:55 AM [facility] ANION GAP 11 5 - 18 04/13/2025 9:55 AM [facility] GLUCOSE 124(H) 70 - 99 mg/dL 04/13/2025 9:55 AM [facility] CALCIUM 9.0 8.8 - 10.4 mg/dL 04/13/2025 9:55 AM [facility] Comment: Reference ranges for this test were updated on 06/11/2024 to reflect our healthy population more accurately. Reference range changes are not retroactively applied to results, but previous results using the same methodology can be interpreted in the context of the new reference range. BUN 16 6 - 20 mg/dL 04/13/2025 9:55 AM T [facility] CREATININE 0.79 0.70 - 1.20 mg/dL 04/13/2025 9:55 AM [facility] BUN/CREAT RATIO 20 10 - 20 9:55 AM T [facility] eGFR >90 >90 mL/min/1. 73m2 04/13/2025 9:55 AM [facility] Comment:As of 2021, eG FR [...] CDT Radu Vincent MD CHEMISTRY Final Result [facility] [address] [place] [id number] from Last 3 Months Insurance [place] [facility] [place] [place] Subscriber Plan / Payer (Ef fective 2025-Present) Name:Ruddy Dowd Relation to Subscriber:Self Name:Ruddy Dowd Payer ID:Not on file Group ID:Not on file Type:Not on file Address: [employer] Advance Directives * Full Code (Latest Code Status on File) Date Activated Date Inactivated Comments 08/20/2019 7:16 AM 08/20/2019 1:52 PM Question Answer Comments Code Status Discussion: Not Discussed Care Teams Continuous Mining Operator Relationship Specialty Start Date End Date Pcp, No . PCP - General 01/26/22
[2025-04-30 10:43] VITALS: BP 123/75; PULSE 66; RESP 16; TEMP 36.5; O2SAT 100; BMI 21.1
[2025-04-30 11:01] LABS: Appearance Urine Clear (Clear)
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
--- NOTE | 2025-04-30 12:01 | CRLHL7_ITS ---
For Patients: As a result of the Century Cures Act, medical imaging exams and procedure reports are released immediately into your electronic medical record. You may view this report before your referring provider. If you have questions, please contact your health care provider. INDICATION: Left renal stone TECHNIQUE: Abdomen Pelvis radiograph 1 view on 2 images COMPARISON: None FINDINGS: Bowel: The bowel gas pattern is normal without evidence of bowel obstruction. Soft tissue: Overlying fabric artifacts moderately degrade the evaluation of the soft tissues and osseous structures. There is a 5 mm density which may represent a stone in the upper pole of the left kidney. Bone: Unremarkable for age. IMPRESSION: 1. There is a 5 mm density which may represent a stone in the upper pole of the left kidney. Dictated by Nick Lewis MD @ 04/30/2025 12:55:31 PM Dictated by: Nick Lewis MD @ 04/30/2025 12:55:34 (Electronically Signed)
[2025-04-30] MEDS: OxyCODONE/APAP 5-325 TABLET 2 TAB PO (12:10)
[2025-04-30] MEDS: TAMSULOSIN HCL 0.4 MG CAPSULE PO (12:10)
[2025-04-30] MEDS: ONDANSETRON ODT 4 MG TAB PO (12:11)
--- NOTE | 2025-04-30 13:02 | CRLHL7_ITS ---
For Patients: As a result of the Century Cures Act, medical imaging exams and procedure reports are released immediately into your electronic medical record. You may view this report before your referring provider. If you have questions, please contact your health care provider. INDICATION: Left-sided ureteral stone and pain. TECHNIQUE: Axial images were obtained from the diaphragm to the pubic symphysis. Reformats were obtained in the coronal and sagittal plane. IV Contrast: None Oral Contrast: None COMPARISON: The abdomen and pelvis CT 09/14/2010 FINDINGS: Lower chest: Unremarkable. Liver: Unremarkable. Normal in size and attenuation. No masses. Gallbladder and bile ducts: Unremarkable. No stones or inflammation. No biliary dilatation. Spleen: Unremarkable. Normal in size without mass. Pancreas: Unremarkable. No mass or inflammation. Adrenal glands: Unremarkable. No nodules. Kidneys: Nonobstructing nephrolithiasis was cluster of stones at the upper pole of the left kidney, largest measuring 6 millimeters. No ureteral stone or hydronephrosis. Vasculature: Atherosclerosis without abdominal aortic aneurysm. GI tract: The stomach is unremarkable. No dilated loops of large or small intestine. Appendix unremarkable. Pelvis: Unremarkable. Bones: Unremarkable for age. IMPRESSION: 1. Nephrolithiasis without evidence of ureteral stone or hydronephrosis. 2. No dilated bowel or localized inflammation. Please note that all CT scans at this facility use dose modulation, iterative reconstruction, and/or weight-based dosing when appropriate to reduce radiation dose to as low as reasonably achievable. Dictated by Vivek Brush MD @ 04/30/2025 1:31:15 PM (Electronically Signed)
== END 2025-04-30 14:12 | disposition home or self-care (01) ==
PROVIDERS: Emergency Provider Family Medicine; PCP Family Medicine
DX: R10.9 Unspecified abdominal pain (principal)
CPT/HCPCS: 74018; 74176; 81001; 87086; 99283; 99284; A9270